=== PATIENT | male | born 1940 | race Caucasian/White ===

== ENCOUNTER 2016-12-04 09:43 | Emergency (ER) | payer OTHER ==
[~2016-12-04] VITALS: Wt 72.5 kg
[~2016-12-04 09:43] MED LIST: ASPI81TA3 PO; ATOR20TA38 PO; HYDR-902 PO; LOSA50TA6 PO; ONDA4TAB14 PO; TAMS-14 PO; TRAM-40 PO
[2016-12-04] MEDS ORDERED: BENZ100C70 PO (11:37)
[2016-12-04] MEDS ORDERED: AMO500 PO (11:37)
[2016-12-04] MEDS ORDERED: IBUP-1542 PO (11:37)
[2016-12-04] MEDS ORDERED: IBUPROFEN 600 MG TAB PO ONE (12:00)
--- NOTE | 2016-12-04 15:01 | ERD ---
ER Documentation Chief Complaint Date/Time DATE: 12/04/16 TIME: 14:50 Chief Complaint COUGH EAR PAIN AND SORE THROAT AND INTERMITTENT FEVERS FOR 3 DAYS HPI This is a 76-year-old male complaining of sore throat for 4 days associated with nonproductive cough, bilateral ear pain, headache and sore throat. Headache is localized under frontal and maxillary area. He reports that he thinks he has a fever but denies any night sweats or chills. Denies any visual changes, dysphagia, chest pain, shortness of breath, nausea, generalized weakness, diarrhea, constipation, or dysuria. Denies recent sick contact. Denies ear or nasal discharge. ROS All systems reviewed and are negative except as per history of present illness. Medications Home Meds Active Scripts Ibuprofen* (Motrin*) 600 Mg Tab, 600 MG PO Q6H Y for PAIN AND OR ELEVATED TEMP, #30 TAB Prov:ALICE BETANCOURT 12/04/16 Benzonatate* (Tessalon Perle*) 100 Mg Capsule, 100 MG PO Q8H Y for COUGH, #30 CAP Prov:ALICE BETANCOURT 12/04/16 Amoxicillin* (Amoxicillin*) 500 Mg Cap, 500 MG PO BID for 10 Days, CAP Prov:ALICE BETANCOURT 12/04/16 Ondansetron (Ondansetron Odt) 4 Mg Tab.rapdis, 4 MG PO Q6H Y for NAUSEA AND/OR VOMITING, #30 TAB Prov:CHELLE HIRSCH MD 09/26/16 Hydrocodone/Acetaminophen ([place] 10-325 Tablet) 1 Each Tablet, 1 TAB PO Q6H Y for PAIN, #12 TAB Prov:CHELLE HIRSCH MD 09/26/16 Atorvastatin Calcium* (Atorvastatin Calcium*) 20 Mg Tab, 40 MG PO HS for 30 Days Prov:NENA THOMASON 03/25/15 Reported Medications Losartan Potassium* (Losartan Potassium*) 50 Mg Tablet, 50 MG PO DAILY, TAB 09/26/16 Tramadol Hcl* (Ultram*) 50 Mg Tablet, 50 MG PO BID Y for PAIN, TAB 09/26/16 Aspirin* (Aspirin* Chew) 81 Mg Tab.chew, 81 MG PO DAILY, TAB.CHEW 09/26/16 Tamsulosin Hcl* (Flomax*) 0.4 Mg Cap.er.24h, 0.4 MG PO HS, CAP 03/24/15 Allergies Allergies: Coded Allergies: No Known Drug Allergies (Verified Allergy, Unknown, 09/26/16) PMhx/Soc History of Surgery: Yes (Appendectomy 1961, Prostate radiation January2014) Anesthesia Reaction: No Hx Neurological Disorder: No Hx Respiratory Disorders: Yes (SOB) Hx Cardiac Disorders: Yes (Chest pain) Hx Psychiatric Problems: No Hx Miscellaneous Medical Probl: No (prostate ca- resolved x 1yr, RA, PUD) Hx Alcohol Use: No Hx Substance Use: No Hx Tobacco Use: No Physical Exam Vitals Vital Signs Date Time Temp Pulse Resp B/P Pulse Ox O2 Delivery O2 Flow Rate FiO2 12/04/16 09:55 99.5 72 22 119/60 96 Physical Exam Physical Exam CONST: Well-developed, well-nourished, in no acute distress. HEENT: Atraumatic. Normal Conjunctiva. EOM intact. TM intact. External ear is normal. Oropharynx has erythema with exudates. Full range of motion. No meningismus. No submandibular induration. RESP: Clear to auscultation bilaterally. No wheezing. CARDIO: Regular rate and rhythm, no murmurs ABD: Soft, non tender, non distended. Normal bowel sounds. No McBurney's point tenderness. No guarding or rigidity. No peritoneal signs. SKIN: No petechiae or rashes BACK: No midline or flank tenderness EXT: No cyanosis or edema. Distal pulses equal and bilateral NEURO: Awake and alert, appropriate for age Results 24 hrs Current Medications Medications (Trade) Dose Ordered Sig/Sam Route PRN Reason Start Time Stop Time Status Last Admin Dose Admin Ibuprofen (Motrin) 600 mg ONCE ONCE PO 12/04/16 12:00 12/04/16 12:01 DC 12/04/16 11:52 Procedures/MDM EMERGENCY DEPARTMENT COURSE/MEDICAL DECISION MAKING This is a 76-year-old male who comes to the emergency room secondary to complaints of sore throat for 4 days associated with nonproductive cough, bilateral ear pain, headache and sore throat. Physical exam shows erythematous oropharynx with exudates. The patient was given ibuprofen in the department. On re-evaluation, the patient was feeling improved. My primary diagnosis is pharyngitis. Secondary diagnosis are cough, headache and sore throat Differential diagnoses considered, included but not limited to upper respiratory infection, tonsillitis, pneumonia, CT, otitis media, cerebral hemorrhage, influenza, meningitis. The patient was discharged for outpatient management with a prescription for amoxicillin, ibuprofen and Tessalon. The patient was advised to followup with their PMD in 1-2 days and to return to the Emergency Department if there are any new or worsening symptoms. The patient understood and agreed with the diagnosis, treatment and plan. The patient is stable for discharge at this time. Departure Diagnosis: Primary Impression: Pharyngitis, acute Pharyngitis/tonsillitis etiology: unspecified etiology Qualified Code: J02.9 - Acute pharyngitis, unspecified etiology Additional Impressions: Cough Headache Headache type: unspecified Headache chronicity pattern: acute headache Intractability: intractable Qualified Code: R51 - Acute intractable headache , unspecified headache type Sore throat Condition: Good Patient Instructions: When You Have a Sore Throat, Self-Care for Sore Throats, Self-Care for Headaches, Pharyngitis, Strep (Presumed) Referrals: TREY RUTLEDGE (PCP) Additional Instructions: Call your primary care doctor TOMORROW for an appointment during the next 1-2 days.See the doctor sooner or return here if your condition worsens before your appointment time. Return to this facility if you are not improving as expected. Take all medicines as directed. ALICE BETANCOURT Dec 04, 2016 15:01
== END 2016-12-04 11:56 | disposition home or self-care (01) ==
LOC: FTE 09:43
DX: J02.9 Acute pharyngitis, unspecified (principal); R05 Cough; R51 Headache; Z85.46 Personal history of malignant neoplasm of prostate; Z79.82 Long term (current) use of aspirin
CPT/HCPCS: 99284

== ENCOUNTER 2017-01-08 14:45 | Emergency (ER) | payer OTHER ==
[~2017-01-08] VITALS: Wt 71.9 kg
[~2017-01-08 14:45] MED LIST changes: +AMO500 PO; +BENZ100C70 PO; +IBUP-1542 PO
[2017-01-08] MEDS ORDERED: KETOROLAC 15 MG INJ IV STA (19:48)
[2017-01-08] MEDS ORDERED: SOD CHLORIDE 0.9% 500 ML IV STA (19:48)
[2017-01-08] MEDS ORDERED: CARI350T PO (19:53)
--- NOTE | 2017-01-08 19:56 | ERD ---
ER Documentation Chief Complaint Date/Time DATE: 01/08/17 TIME: 19:53 Chief Complaint CHEST PRESSURE AND LEFT ARM PAIN SINCE YESTERDAY, NO SOB NOTED HPI 76-year-old man complains of bilateral anterior neck pain and throat pain 2 months he states the pain radiates down to the anterior chest. Radiation of pain has occurred intermittently over the last 2 months. He denies exertional chest pain, no fevers or chills, no vomiting or diarrhea, no headache or blurry vision. Patient's PMD ordered bilateral carotid Doppler ultrasound, and patient and his state that this test was negative for abnormalities or significant carotid stenosis. Patient has had no weight loss, no calf or leg swelling, no recent trauma. ROS All systems reviewed and are negative except as per history of present illness. Medications Home Meds Active Scripts Carisoprodol* (Soma*) 350 Mg Tablet, 350 MG PO BID Y for PAIN, #15 TAB Prov:BRITT STONER MD 01/08/17 Reported Medications Carvedilol* (Carvedilol*) 6.25 Mg Tablet, 6.25 MG PO BID, #60 TAB 01/08/17 Atorvastatin* (Atorvastatin*) 40 Mg Tablet, 40 MG PO QHS, #30 TAB 01/08/17 Losartan Potassium* (Losartan Potassium*) 50 Mg Tablet, 50 MG PO DAILY, TAB 09/26/16 Aspirin* (Aspirin* Chew) 81 Mg Tab.chew, 81 MG PO DAILY, TAB.CHEW 09/26/16 Tamsulosin Hcl* (Flomax*) 0.4 Mg Cap.er.24h, 0.4 MG PO HS, CAP 03/24/15 Discontinued Reported Medications Tramadol Hcl* (Ultram*) 50 Mg Tablet, 50 MG PO BID Y for PAIN, TAB 09/26/16 Discontinued Scripts Ibuprofen* (Motrin*) 600 Mg Tab, 600 MG PO Q6H Y for PAIN AND OR ELEVATED TEMP, #30 TAB Prov:ALICE BETANCOURT 12/04/16 Benzonatate* (Tessalon Perle*) 100 Mg Capsule, 100 MG PO Q8H Y for COUGH, #30 CAP Prov:ALICE BETANCOURT 12/04/16 Amoxicillin* (Amoxicillin*) 500 Mg Cap, 500 MG PO BID for 10 Days, CAP Prov:ALICE BETANCOURT 12/04/16 Ondansetron (Ondansetron Odt) 4 Mg Tab.rapdis, 4 MG PO Q6H Y for NAUSEA AND/OR VOMITING, #30 TAB Prov:CHELLE HIRSCH MD 09/26/16 Hydrocodone/Acetaminophen ([place] 10-325 Tablet) 1 Each Tablet, 1 TAB PO Q6H Y for PAIN, #12 TAB Prov:CHELLE HIRSCH MD 09/26/16 Atorvastatin Calcium* (Atorvastatin Calcium*) 20 Mg Tab, 40 MG PO HS for 30 Days Prov:NENA THOMASON 03/25/15 Allergies Allergies: Coded Allergies: No Known Drug Allergies (Verified Allergy, Unknown, 01/08/17) PMhx/Soc Hypertension hypercholesterolemia, BPH History of Surgery: Yes (Appendectomy 1961, Prostate radiation January2014) Anesthesia Reaction: No Hx Neurological Disorder: No Hx Respiratory Disorders: Yes (SOB) Hx Cardiac Disorders: Yes (Chest pain) Hx Psychiatric Problems: No Hx Miscellaneous Medical Probl: No (prostate ca- resolved x 1yr, RA, PUD) Hx Alcohol Use: No Hx Substance Use: No Hx Tobacco Use: No Smoking Status: Never smoker FmHx Family History: No diabetes Physical Exam Vitals Vital Signs Date Time Temp Pulse Resp B/P Pulse Ox O2 Delivery O2 Flow Rate FiO2 01/08/17 21:54 98.0 100 20 143/69 99 Room Air 01/08/17 15:04 98.5 76 22 163/79 98 Physical Exam GENERAL: Well-developed, well-nourished, well-hydrated, in no apparent distress , looks nontoxic in appearance HEENT: No carotid bruits auscultated or thrills palpated, moist mucous membranes , pink conjunctiva, no cervical spine tenderness or step-off deformities, no goiter, no jaundice or icterus, extraocular movements intact without pain. No submandibular induration, and no pharyngeal erythema NEURO: Alert and oriented 3, cranial nerves II through XII intact bilaterally, pupils equal round reactive to light, no focal deficits or facial asymmetry, sensation intact distally Strength 5/5 in upper and lower extremities bilaterally CARDIAC: Regular rate and rhythm, no murmurs rubs or gallops LUNGS: Clear bilaterally no wheezing crackles or stridor ABDOMEN: Soft nontender, no guarding, no rigidity, no rebound, no psoas sign no obturator sign. Normoactive bowel sounds SKIN: Warm and dry to touch, no abrasions, contusions, or hematomas, no lacerations, no ecchymosis, no target lesions, and without ulcers EXTREMITIES: No clubbing cyanosis or edema, calves are bilaterally symmetrical, no Homans sign, no popliteal cord sign. Distal pulses equal and bilateral PSYCH: Normal affect without agitation or irritability Results 24 hrs Laboratory Tests Test 01/08/17 20:00 Troponin I < 0.012ng/ml Current Medications Medications (Trade) Dose Ordered Sig/Sam Route PRN Reason Start Time Stop Time Status Last Admin Dose Admin Sodium Chloride (NS) 500 ml @ 500 mls/hr Q1H STAT IV 01/08/17 19:48 01/08/17 20:47 DC 01/08/17 19:57 Ketorolac Tromethamine (Toradol) 15 mg ONCE STAT IV 01/08/17 19:48 01/08/17 19:50 DC 01/08/17 19:57 Procedures/MDM IV line was established patient was placed on cardiac cath technologist rhythm strip revealed sinus rhythm at about 70 bpm with upright P and T waves. Patient was afebrile. EKG performed, read by me: 72 bpm, normal sinus rhythm, normal axis, no acute ST segment changes, narrow QRS complex, with good R-wave progression in precordial leads. I administered 500 cc of normal saline intravenously and Toradol 15 mg IV with good effect. Troponin was negative Differential diagnoses considered, included but not limited to acute coronary syndrome, pulmonary embolism, aortic dissection, abdominal aortic aneurysm, sepsis, stroke, meningitis, encephalitis, pneumonia, appendicitis, cholecystitis , bowel obstruction, pyelonephritis, nephrolithiasis, cystitis, as well as metabolic, hematologic, and electrolyte abnormalities. As well as abscess, cellulitis, fractures, and dislocations. Patient feels much better at this time, and vital signs are normal, symptoms have improved. I did give strict instructions to return to the ED if symptoms continue or worsen, patient will otherwise follow-up with primary care physician. Patient understood instructions and agreed to plan. Departure Diagnosis: Primary Impression: Carotidynia Condition: Good Patient Instructions: Neck Pain, No Trauma Referrals: TREY RUTLEDGE (PCP) BRITT STONER MD Jan 08, 2017 19:56
[2017-01-08] MEDS ORDERED: ATOR40TA68 PO (20:13)
[2017-01-08] MEDS ORDERED: CARV6.2579 PO (20:14)
[2017-01-08 21:54] VITALS: BP 143/69; PULSE 100; RESP 20; TEMP 98
== END 2017-01-08 21:54 | disposition home or self-care (01) ==
LOC: E/R 14:45
DX: G90.01 Carotid sinus syncope (principal); I10 Essential (primary) hypertension; Z85.46 Personal history of malignant neoplasm of prostate; Z79.82 Long term (current) use of aspirin
CPT/HCPCS: 84484; J1885; J7040; 36415; 96374

== ENCOUNTER 2017-04-17 19:32 | Emergency (ER) | payer OTHER ==
[~2017-04-17] VITALS: Ht 172.7 cm; Wt 75.5 kg
[~2017-04-17 19:32] MED LIST changes: -AMO500 PO; -ATOR20TA38 PO; +ATOR40TA68 PO; -BENZ100C70 PO; +CARI350T PO; +CARV6.2579 PO; -HYDR-902 PO; -IBUP-1542 PO; -ONDA4TAB14 PO; -TRAM-40 PO
[2017-04-17 19:36] VITALS: Ht 172.7 cm; Wt 75.5 kg
[2017-04-17] MEDS ORDERED: ACET-141 PO (21:21)
[2017-04-17] MEDS ORDERED: MULT1TAB10 PO (21:21)
[2017-04-17] MEDS ORDERED: ONDANSETRON 4 MG INJ IV STA (21:31)
[2017-04-17] MEDS ORDERED: morphine 2 MG INJ IV ONE (22:00)
[2017-04-17 22:11] LABS: ADD SCAN DIFF NO
--- NOTE | 2017-04-17 22:16 | RADRPT ---
PROCEDURE: XR Chest. CLINICAL INDICATION: Chest pain. Possible sepsis TECHNIQUE: Portable AP semi erect view of the chest was obtained. COMPARISON: 09/26/2016 FINDINGS: The cardiomediastinal silhouette is within upper normal limits. Left greater than right lower lobe subsegmental atelectasis or scarring is present without evidence of pneumonia. There is no evidence for pleural effusion, pneumothorax or pulmonary vascular congestion. The osseous structures are in tact with no evidence for acute abnormality. RPTAT:HJJR IMPRESSION: Changes in the lung bases are believed to reflect left greater than right lower lobe subsegmental at electasis or scarring similar to the study of 09/26/2016 allowing for the difference in degrees of i nspiratory response. Physician López Date Time Electronically viewed and signed by Physician López on 04/17/2017 22:16 /
[2017-04-17 22:19] LABS: BASOPHILS % 0.4 % (0.0-2.0); EOSINOPHILS # 0.3 10^3/ul (0.0-0.5); EOSINOPHILS % 3.4 % (0.0-7.0); HEMATOCRIT 42.4 % (42.0-52.0); HEMOGLOBIN 14.1 g/dl (14.0-18.0); LYMPHOCYTES # 2.8 10^3/ul (0.8-2.9); MEAN CORPUSCULAR HEMOGLOBIN 29.3 pg (29.0-33.0); MEAN CORPUSCULAR HGB CONC 33.3 g/dl (32.0-37.0); MEAN PLATELET VOLUME 10.6 fl (7.4-10.4); MONOCYTE # 0.6 10^3/ul (0.3-0.9); MONOCYTES % 7.9 % (0.0-11.0); NEUTROPHILS % 52.2 % (39.0-77.0); PLATELET COUNT 223 10^3/UL (140-415); RED BLOOD COUNT 4.82 10^6/ul (4.70-6.10); RED CELL DISTRIBUTION WIDTH 12.4 % (11.5-14.5); WHITE BLOOD COUNT 7.7 10^3/ul (4.8-10.8)
[2017-04-17 22:19] LABS: ADD UMIC NO; UR ASCORBIC ACID NEGATIVE (NEGATIVE); UR BILIRUBIN (Dip) NEGATIVE (NEGATIVE); UR BLOOD (Dip) NEGATIVE (NEGATIVE); UR CLARITY CLEAR (CLEAR); UR COLOR YELLOW (YELLOW); UR GLUCOSE (Dip) NEGATIVE (NEGATIVE); UR KETONES (Dip) NEGATIVE (NEGATIVE); UR LEUKOCYTE ESTERASE (Dip) NEGATIVE Leu/ul (NEGATIVE); UR NITRITE (Dip) NEGATIVE (NEGATIVE); UR SPECIFIC GRAVITY (Dip) 1.021 (1.003-1.030); UR TOTAL PROTEIN (Dip) NEGATIVE (NEGATIVE); UR UROBILINOGEN (Dip) NEGATIVE (NEGATIVE)
--- NOTE | 2017-04-17 22:30 | RADRPT ---
PROCEDURE: CT Abdomen and Pelvis without contrast. CLINICAL INDICATION: Fever. Possible sepsis. TECHNIQUE: CT scan of the abdomen and pelvis was performed on a multidetector slice CT scanner. No intravenous contrast material was utilized. Sagittal and coronal reformatted images were obtained fr om the axial source images. Images were reviewed on a high-resolution PACS workstation. Exam CTDlvol = 9.6 mGy and DLP = 537 Gy-cm. One of the following 3 dose reduction techniques were used: Automate d exposure control; adjustment of the mA and/or kV according to patient size; or use of iterative re construction technique. COMPARISON: 09/26/2016. FINDINGS: There is no obstruction or ileus. The appendix is visualized and is normal in appearance. There is no evidence for appendicitis.. There is diffuse colonic diverticulosis greatest involving the sigmo id colon, without evidence for diverticulitis. There is no free fluid. The liver is overall normal in size. No intrahepatic lesions are identified. The gallbladder is norm al in appearance. There is no definite biliary ductal dilation. Pancreas is normal in appearance. Th e spleen is unremarkable.. There are no adrenal masses. The aorta is normal caliber. Atheroscleroti c vascular calcifications are present.. Kidneys are normal in appearance without hydronephrosis, mass or calculus.. Ureters are of normal ca liber and without evidence for an obstructing calculus. The urinary bladder is normal in appearance .. Limited evaluation of the lung bases demonstrates moderate bibasilar atelectasis.. There are degenerative changes of the lumbar spine. There is 2 mm anterior spondylolisthesis of L4-L 5 with associated severe bilateral posterior facet hypertrophy.. IMPRESSION: 1. No acute abnormality. 2. Diffuse colonic diverticulosis without evidence for diverticulitis. 3. No evidence for appendicitis. 4. No bowel obstruction or ileus. 5. Degenerative changes of the lumbar spine including grade 1 anterior spondylolisthesis of L4 on L 5. 6. Bibasilar atelectasis. RPTAT: HMVK .Ron Mcmahan MD, Date Time Electronically viewed and signed by .Ron Mcmahan MD, on 04/17/2017 22:30 .K/
[2017-04-17 22:33] LABS: PROTIME 13.2 Sec (12.2-14.2)
[2017-04-17 22:40] LABS: ALANINE AMINOTRANSFERASE 36 IU/L (13-69); ALBUMIN 4.7 g/dl (3.3-4.9); ALBUMIN/GLOBULIN RATIO 1.51; ALKALINE PHOSPHATASE 109 IU/L (42-121); ANION GAP 20 (8-16); ASPARTATE AMINO TRANSFERASE 30 IU/L (15-46); BILIRUBIN,INDIRECT 0.2 mg/dl (0-1.1); BILIRUBIN,TOTAL 0.2 mg/dl (0.2-1.3); BLOOD UREA NITROGEN 24 mg/dl (7-20); CALCIUM 9.4 mg/dl (8.4-10.2); CARBON DIOXIDE 26 mmol/L (21-31); CHLORIDE 100 mmol/L (97-110); CREATININE 0.89 mg/dl (0.61-1.24); GLUCOSE 90 mg/dl (70-220); POTASSIUM 3.5 mmol/L (3.5-5.1); SODIUM 142 mmol/L (135-144); TOTAL PROTEIN 7.8 g/dl (6.1-8.1)
[2017-04-17 23:00] LABS: TROPONIN-I < 0.012 ng/ml (0.00-0.12)
--- NOTE | 2017-04-17 23:32 | ERD ---
ER Documentation Chief Complaint Date/Time DATE: 04/17/17 TIME: 23:31 Chief Complaint LUQ ABD PAIN RADIATES TO THE BACK HPI This is a 76-year-old male who has left upper quadrant abdominal pain that radiates to the back. No fevers no chills. No nausea no vomiting. No other current issues. Pain is mild to moderate intensity. Mild nausea. No vomiting. No diarrhea. Last bowel movement today in the morning ROS All systems reviewed and are negative except as per history of present illness. Medications Home Meds Reported Medications Multivitamin W-Minerals/Lutein (CENTRUM SILVER ULTRA MEN'S TAB) 1 Each Tablet, 1 EACH PO, TAB 04/17/17 Acetaminophen* (Acetaminophen*) 500 MG Extra Strength Tablet, 500 MG PO Q4H Y for PAIN AND OR ELEVATED TEMP, TAB 04/17/17 Carvedilol* (Carvedilol*) 6.25 Mg Tablet, 6.25 MG PO BID, #60 TAB 01/08/17 Atorvastatin* (Atorvastatin*) 40 Mg Tablet, 40 MG PO QHS, #30 TAB 01/08/17 Losartan Potassium* (Losartan Potassium*) 50 Mg Tablet, 50 MG PO DAILY, TAB 09/26/16 Aspirin* (Aspirin* Chew) 81 Mg Tab.chew, 81 MG PO DAILY, TAB.CHEW 09/26/16 Tamsulosin Hcl* (Flomax*) 0.4 Mg Cap.er.24h, 0.4 MG PO HS, CAP 03/24/15 Discontinued Scripts Carisoprodol* (Soma*) 350 Mg Tablet, 350 MG PO BID Y for PAIN, #15 TAB Prov:BRITT STONER MD 01/08/17 Allergies Allergies: Coded Allergies: No Known Drug Allergies (Unverified Allergy, Unknown, 04/17/17) PMhx/Soc History of Surgery: Yes (Appendectomy 1961, Prostate radiation January2014) Anesthesia Reaction: No Hx Neurological Disorder: No Hx Respiratory Disorders: Yes (SOB) Hx Cardiac Disorders: Yes (Chest pain, HTN, high cholesterol) Hx Psychiatric Problems: No Hx Miscellaneous Medical Probl: No (prostate ca- resolved x 1yr, RA, PUD) Hx Alcohol Use: No Hx Substance Use: No Hx Tobacco Use: No Smoking Status: Never smoker Physical Exam Vitals Vital Signs Date Time Temp Pulse Resp B/P Pulse Ox O2 Delivery O2 Flow Rate FiO2 7/4/17 21:54 98.0 60 16 139/76 98 Room Air 04/17/17 19:36 98.1 68 20 188/81 97 Physical Exam Const: [] Head: Atraumatic Eyes: Normal Conjunctiva ENT: Normal External Ears, Nose and Mouth. Neck: Full range of motion..~ No meningismus. Resp: Clear to auscultation bilaterally Cardio: Regular rate and rhythm, no murmurs Abd: Soft, non tender, non distended. Normal bowel sounds Skin: No petechiae or rashes Back: No midline or flank tenderness Ext: No cyanosis, or edema Neur: Awake and alert Psych: Normal Mood and Affect Result Diagram: 04/17/17204404/17/172044 Results 24 hrs Laboratory Tests Test 04/17/17 20:20 04/17/17 20:45 04/17/17 21:40 Urine Color YELLOW Urine Clarity CLEAR Urine pH 5.0 Urine Specific [place] 1.021 Urine Ketones NEGATIVEmg/dL Urine Nitrite NEGATIVEmg/dL Urine Bilirubin NEGATIVEmg/dL Urine Urobilinogen NEGATIVEmg/dL Urine Leukocyte Esterase NEGATIVELeu/ul Urine Hemoglobin NEGATIVEmg/dL Urine Glucose NEGATIVEmg/dL Urine Total Protein NEGATIVEmg/dl White Blood Count 7.710^3/ul Red Blood Count 4.8210^6/ul Hemoglobin 14.1g/dl Hematocrit 42.4% Mean Corpuscular Volume 88.0fl Mean Corpuscular Hemoglobin 29.3pg Mean Corpuscular Hemoglobin Concent 33.3g/dl Red Cell Distribution Width 12.4% Platelet Count 82420^3/UL Mean Platelet Volume 10.6fl Neutrophils % 52.2% Lymphocytes % 36.0% Monocytes % 7.9% Eosinophils % 3.4% Basophils % 0.4% Nucleated Red Blood Cells % 0.0/100WBC Neutrophils # 4.010^3/ul Lymphocytes # 2.810^3/ul Monocytes # 0.610^3/ul Eosinophils # 0.310^3/ul Basophils # 0.010^3/ul Nucleated Red Blood Cells # 0.010^3/ul Prothrombin Time 13.2Sec Prothrombin Time Ratio 1.0 INR International Normalized Ratio 1.00 Activated Partial Thromboplast Time 36.0Sec Sodium Level 142mmol/L Potassium Level 3.5mmol/L Chloride Level 100mmol/L Carbon Dioxide Level 26mmol/L Anion Gap 20 Blood Urea Nitrogen 24mg/dl Creatinine 0.89mg/dl Glucose Level 90mg/dl Calcium Level 9.4mg/dl Total Bilirubin 0.2mg/dl Direct Bilirubin 0.00mg/dl Indirect Bilirubin 0.2mg/dl Aspartate Amino Transf (AST/SGOT) 30IU/L Alanine Aminotransferase (ALT/SGPT) 36IU/L Alkaline Phosphatase 109IU/L Troponin I < 0.012ng/ml Total Protein 7.8g/dl Albumin 4.7g/dl Globulin 3.10g/dl Albumin/Globulin Ratio 1.51 Lactic Acid Level 1.1mmol/L Current Medications Medications (Trade) Dose Ordered Sig/Sam Route PRN Reason Start Time Stop Time Status Last Admin Dose Admin Ondansetron HCl (Zofran Inj) 4 mg ONCE STAT IV 04/17/17 21:31 04/17/17 21:33 DC 04/17/17 21:43 Morphine Sulfate (morphine) 2 mg ONCE ONCE IV 04/17/17 22:00 04/17/17 22:01 DC 04/17/17 21:44 Procedures/MDM EKG: Rate/Rhythm: [Normal Sinus Rhythm] QRS, ST, T-waves: [No changes consistent w/ acute ischemia] Impression: [No evidence of ischemia or arrhythmia] Chest X-ray 1V Interpreted by me: Soft Tissue: No acute abnormalities Bones: No acute abnormalities Mediastinum/Cardiac Silhouette/Lungs: [No acute abnormalities] Medical decision-makin-year-old male mild diverticulitis. Stable for outpatient management. Discharge home with Cipro and Flagyl. Follow-up in 8 hours for serial abdominal exams. Return for new or worsening symptoms immediately Departure Diagnosis: Primary Impression: Abdominal pain Abdominal location: generalized Qualified Code: R10.84 - Generalized abdominal pain Additional Impression: Diverticulitis Diverticulitis site: unspecified part of intestinal tract Diverticulitis bleeding: without bleeding Diverticulitis complication: without perforation or abscess Qualified Code: K57.92 - Diverticulitis of intestine without perforation or abscess without bleeding, unspecified part of intestinal tract Condition: Stable HIGINIO PAIZ Apr 17, 2017 23:32
[2017-04-17] MEDS ORDERED: METR500T PO (23:34)
[2017-04-17] MEDS ORDERED: CIPR500T4 PO (23:34)
[2017-04-17] MEDS ORDERED: ONDA4TAB14 PO (23:34)
[2017-04-17] MEDS ORDERED: TRAM50TA2 PO (23:34)
[2017-04-18 00:28] VITALS: BP 119/68; PULSE 60; RESP 18; TEMP 98.7
== END 2017-04-18 00:29 | disposition home or self-care (01) ==
LOC: E/R 19:32
DX: R10.84 Generalized abdominal pain (principal); K57.92 Diverticulitis of intestine, part unspecified, without perforation or abscess without bleeding; I10 Essential (primary) hypertension; Z79.82 Long term (current) use of aspirin
CPT/HCPCS: 36415; 71010; 74176; 80053; 81003; 83605; 84484; 85025; 85610; 85730; 87040; 87086; 93005; 96374; 96375; 99285; J2270; J2405

== ENCOUNTER 2017-04-21 09:35 | Inpatient (IN) | payer OTHER ==
[~2017-04-21] VITALS: Ht 160 cm; Wt 72.4 kg
[~2017-04-21 09:35] MED LIST changes: +ACET-141 PO; -CARI350T PO; +CIPR500T4 PO; +METR500T PO; +MULT1TAB10 PO; +ONDA4TAB14 PO; +TRAM50TA2 PO
[2017-04-21] MEDS ORDERED: PANTOPRAZOLE IV 80 MG in SOD CHLORIDE 0.9% 100 ML IVPB STA (11:32)
[2017-04-21] MEDS ORDERED: PANTOPRAZOLE IV 80 MG in SOD CHLORIDE 0.9% 100 ML IV STA (11:32)
[2017-04-21 11:49] LABS: ADD SCAN DIFF NO
[2017-04-21 11:50] LABS: BASOPHILS % 0.4 % (0.0-2.0); EOSINOPHILS # 0.1 10^3/ul (0.0-0.5); EOSINOPHILS % 1.9 % (0.0-7.0); HEMATOCRIT 40.7 % (42.0-52.0); HEMOGLOBIN 13.9 g/dl (14.0-18.0); LYMPHOCYTES % 37.7 % (15.0-51.0); MEAN CORPUSCULAR HEMOGLOBIN 29.8 pg (29.0-33.0); MEAN CORPUSCULAR HGB CONC 34.2 g/dl (32.0-37.0); MEAN CORPUSCULAR VOLUME 87.3 fl (82.0-101.0); MONOCYTE # 0.4 10^3/ul (0.3-0.9); MONOCYTES % 7.3 % (0.0-11.0); NEUTROPHIL # 2.8 10^3/ul (1.6-7.5); NEUTROPHILS % 52.5 % (39.0-77.0); PLATELET COUNT 207 10^3/UL (140-415); RED BLOOD COUNT 4.66 10^6/ul (4.70-6.10); RED CELL DISTRIBUTION WIDTH 12.5 % (11.5-14.5); WHITE BLOOD COUNT 5.2 10^3/ul (4.8-10.8)
--- NOTE | 2017-04-21 11:58 | ERA ---
ER Documentation Chief Complaint Date/Time DATE: 04/21/17 TIME: 11:56 Chief Complaint MID ABDOMINAL PAIN 9/10.HX DIVERTICULITIS HPI Very pleasant 76-year-old male who is Macedonian-speaking. An cage maker machine has been used. The patient describes several days of lower abdominal pain that is periumbilical, cramping, 9 out of 10. He was seen here 4 days ago for similar with a negative CT abdomen and pelvis. He does have a history of diverticulosis and diverticulitis. He also has a history of peptic ulcer disease and describes several days of melanotic stool. He denies any hematemesis, liver disease or alcohol abuse. ROS All systems reviewed and are negative except as per history of present illness. Medications Home Meds Active Scripts Ondansetron (Ondansetron Odt) 4 Mg Tab.rapdis, 4 MG PO Q6H Y for NAUSEA AND/OR VOMITING, #10 TAB Prov:HIGINIO PAIZ. 04/17/17 Tramadol HCl (Tramadol HCl) 50 Mg Tablet, 50 MG PO Q4 Y for PAIN, #20 TAB Prov:HIGINIO PAIZ. 04/17/17 Metronidazole* (Flagyl*) 500 Mg Tablet, 500 MG PO TID for 7 Days, TAB Prov:HIGINIO PAIZ. 04/17/17 Ciprofloxacin Hcl* (Ciprofloxacin Hcl*) 500 Mg Tablet, 500 MG PO BID for 7 Days , TAB Prov:HIGINIO PAIZ. 04/17/17 Reported Medications Multivitamin W-Minerals/Lutein (CENTRUM SILVER ULTRA MEN'S TAB) 1 Each Tablet, 1 EACH PO, TAB 04/17/17 Acetaminophen* (Acetaminophen*) 500 MG Extra Strength Tablet, 500 MG PO Q4H Y for PAIN AND OR ELEVATED TEMP, TAB 04/17/17 Carvedilol* (Carvedilol*) 6.25 Mg Tablet, 6.25 MG PO BID, #60 TAB 01/08/17 Atorvastatin* (Atorvastatin*) 40 Mg Tablet, 40 MG PO QHS, #30 TAB 01/08/17 Losartan Potassium* (Losartan Potassium*) 50 Mg Tablet, 50 MG PO DAILY, TAB 09/26/16 Aspirin* (Aspirin* Chew) 81 Mg Tab.chew, 81 MG PO DAILY, TAB.CHEW 09/26/16 Tamsulosin Hcl* (Flomax*) 0.4 Mg Cap.er.24h, 0.4 MG PO HS, CAP 03/24/15 Discontinued Scripts Carisoprodol* (Soma*) 350 Mg Tablet, 350 MG PO BID Y for PAIN, #15 TAB Prov:BRITT STONER MD 01/08/17 Allergies Allergies: Coded Allergies: No Known Drug Allergies (Unverified Allergy, Unknown, 04/21/17) PMhx/Soc History of Surgery: Yes (Appendectomy 1961, Prostate radiation January2014) Anesthesia Reaction: No Hx Neurological Disorder: No Hx Respiratory Disorders: Yes (SOB) Hx Cardiac Disorders: Yes (Chest pain, HTN, high cholesterol) Hx Psychiatric Problems: No Hx Miscellaneous Medical Probl: No (prostate ca- resolved x 1yr, RA, PUD) Hx Alcohol Use: No Hx Substance Use: No Hx Tobacco Use: No FmHx Family History: No diabetes Physical Exam Vitals Vital Signs Date Time Temp Pulse Resp B/P Pulse Ox O2 Delivery O2 Flow Rate FiO2 04/21/17 11:45 Nasal Cannula 04/21/17 09:39 97.8 69 18 154/69 98 Physical Exam General: Well developed, well nourished, no acute distress Head: Normocephalic, atraumatic. Eyes: Pupils equally reactive, EOM intact ENT: Moist mucous membranes Neck: Supple, no lymphadenopathy Respiratory: Lungs clear bilaterally, no distress Cardiovascular: RRR, no murmurs, rubs, or gallops Abdominal: Soft, mild diffuse tenderness without rebound or guarding, non- distended, no peritoneal signs : Deferred per patient request MSK: No edema, no unilateral swelling, 5/5 strength Neurologic: Alert and oriented, moving all extremities, normal speech, no focal weakness, no cerebellar signs Skin: No rash Psych: Normal mood Result Diagram: 04/21/17 1137 04/21/17 1137 Results 24 hrs Laboratory Tests Test 04/21/17 11:20 04/21/17 11:37 Urine Color STRAW Urine Clarity CLEAR Urine pH 7.0 Urine Specific [place] 1.005 Urine Ketones NEGATIVEmg/dL Urine Nitrite NEGATIVEmg/dL Urine Bilirubin NEGATIVEmg/dL Urine Urobilinogen NEGATIVEmg/dL Urine Leukocyte Esterase NEGATIVELeu/ul Urine Hemoglobin NEGATIVEmg/dL Urine Glucose NEGATIVEmg/dL Urine Total Protein NEGATIVEmg/dl White Blood Count 5.210^3/ul Red Blood Count 4.6610^6/ul Hemoglobin 13.9g/dl Hematocrit 40.7% Mean Corpuscular Volume 87.3fl Mean Corpuscular Hemoglobin 29.8pg Mean Corpuscular Hemoglobin Concent 34.2g/dl Red Cell Distribution Width 12.5% Platelet Count 70879^3/UL Mean Platelet Volume 10.0fl Neutrophils % 52.5% Lymphocytes % 37.7% Monocytes % 7.3% Eosinophils % 1.9% Basophils % 0.4% Nucleated Red Blood Cells % 0.0/100WBC Neutrophils # 2.810^3/ul Lymphocytes # 2.010^3/ul Monocytes # 0.410^3/ul Eosinophils # 0.110^3/ul Basophils # 0.010^3/ul Nucleated Red Blood Cells # 0.010^3/ul Prothrombin Time 14.4Sec Prothrombin Time Ratio 1.1 INR International Normalized Ratio 1.12 Activated Partial Thromboplast Time 35.7Sec Sodium Level 136mmol/L Potassium Level 4.0mmol/L Chloride Level 103mmol/L Carbon Dioxide Level 27mmol/L Anion Gap 10 Blood Urea Nitrogen 14mg/dl Creatinine 0.94mg/dl Glucose Level 113mg/dl Calcium Level 9.0mg/dl Total Bilirubin 0.5mg/dl Direct Bilirubin 0.00mg/dl Indirect Bilirubin 0.5mg/dl Aspartate Amino Transf (AST/SGOT) 60IU/L Alanine Aminotransferase (ALT/SGPT) 64IU/L Alkaline Phosphatase 79IU/L Total Protein 7.6g/dl Albumin 4.8g/dl Globulin 2.80g/dl Albumin/Globulin Ratio 1.71 Lipase 55U/L Current Medications Medications (Trade) Dose Ordered Sig/Sam Route PRN Reason Start Time Stop Time Status Last Admin Dose Admin Pantoprazole 80 mg/Sodium Chloride 100 ml @ 400 mls/hr ONCE STAT IVPB 04/21/17 11:32 04/21/17 11:46 DC 04/21/17 12:08 Pantoprazole/ Sodium Chloride (Protonix Iv/NS) 100 ml @ 10 mls/hr ONCE STAT IV 04/21/17 11:32 04/21/17 21:31 04/21/17 12:14 Ondansetron HCl (Zofran Inj) 4 mg BRIDGE ORDER PRN IV NAUSEA AND/OR VOMITING 04/21/17 14:30 04/22/17 14:29 Acetaminophen (Tylenol Tab) 650 mg ER BRIDGE PRN PO MILD PAIN/FEVER 04/21/17 14:30 04/22/17 14:29 Procedures/MDM EKG, MONITORS, & DIAGNOSTIC IMAGING: EKG: I reviewed and interpreted a 12-lead EKG. Rhythm: Normal sinus rhythm Ectopy: None Intervals: No abnormalities ST segments: No elevations or depressions T waves: No contiguous inversions CT abdomen and pelvis: No acute intra-abdominal process LAB INTERPRETATION: Stable hemoglobin MEDICAL DECISION MAKING: This is a patient who presents with a history of peptic ulcer disease, abdominal cramping and melanotic stool. His symptoms and presentation are very consistent with likely subacute upper GI hemorrhage. The patient has had a CT scan approximate 4 days ago but given his age, history of diverticulosis there is some concern for acute intra-abdominal process therefore repeat CT imaging would be appropriate. The patient does not have a history of cirrhosis or esophageal varices. The patient will be initiated on a proton pump inhibitor bolus and drip. He will be typed and screened. He is hemodynamically stable and unlikely to require blood transfusion at this time. The patient will benefit from inpatient hospitalization, stabilization and likely GI consultation for endoscopy and potentially colonoscopy. ER COURSE: This is likely subacute process given stable hemoglobin and normal BUN to creatinine ratio. Inpatient hospitalization for GI consultation on a nonemergent basis would be reasonable. PPI bolus and drip initiated. I kept the patient and/or family informed of laboratory and diagnostic imaging results throughout the emergency room course. DISPOSITION PLAN: Medical surgical admission CONSULTATION: Accepting care team and consultations: I discussed the current laboratory data, diagnostic imaging and emergency care provided. Admitting team: Dr. Mcclure Admitting team indication: Insurance directed Departure Diagnosis: Primary Impression: Upper GI bleed Additional Impression: Generalized abdominal pain Condition: Stable MARGRET STORY MD Apr 21, 2017 11:58
[2017-04-21 12:14] LABS: ALBUMIN 4.8 g/dl (3.3-4.9); ALBUMIN/GLOBULIN RATIO 1.71; BILIRUBIN,INDIRECT 0.5 mg/dl (0-1.1); BILIRUBIN,TOTAL 0.5 mg/dl (0.2-1.3); CREATININE 0.94 mg/dl (0.61-1.24); TOTAL PROTEIN 7.6 g/dl (6.1-8.1)
[2017-04-21 12:25] LABS: INR 1.12; PARTIAL THROMBOPLASTIN TIME 35.7 Sec (25.0-35.0); PROTIME 14.4 Sec (12.2-14.2); PT RATIO 1.1
[2017-04-21 12:29] LABS: ADD UMIC NO; UR ASCORBIC ACID NEGATIVE (NEGATIVE); UR BILIRUBIN (Dip) NEGATIVE (NEGATIVE); UR BLOOD (Dip) NEGATIVE (NEGATIVE); UR CLARITY CLEAR (CLEAR); UR COLOR STRAW (YELLOW); UR GLUCOSE (Dip) NEGATIVE (NEGATIVE); UR KETONES (Dip) NEGATIVE (NEGATIVE); UR LEUKOCYTE ESTERASE (Dip) NEGATIVE Leu/ul (NEGATIVE); UR NITRITE (Dip) NEGATIVE (NEGATIVE); UR SPECIFIC GRAVITY (Dip) 1.005 (1.003-1.030); UR TOTAL PROTEIN (Dip) NEGATIVE (NEGATIVE); UR UROBILINOGEN (Dip) NEGATIVE (NEGATIVE)
--- NOTE | 2017-04-21 12:38 | RADRPT ---
PROCEDURE: CT Abdomen and Pelvis without contrast. CLINICAL INDICATION: Abdominal pain TECHNIQUE: CT of the abdomen and pelvis was performed on a multi-detector scanner without IV contr ast. Coronal and sagittal images were reformatted from the axial data set. One or more of the foll owing dose reduction techniques were used: automated exposure control, adjustment of the mA and/or kV according to patient size, use of iterative reconstruction technique. CTDI = 9.84 mGy. DLP = 581 .22 mGy-cm. COMPARISON: CT, 04/17/2017 FINDINGS: CT abdomen: The lung bases are clear. The heart size is normal, without pericardial effusion. Liver demonstrat es scattered benign cysts. Gallbladder, biliary tree, pancreas, spleen, adrenal glands and kidneys are unremarkable. No urolithiasis or obstructive uropathy is identified. The stomach is grossly un remarkable. The aorta is of normal caliber. Aortic vascular calcifications are present. There is no retroperit estrada lymphadenopathy. The vinicius hepatis region is clear. CT pelvis: No bowel obstruction, free intraperitoneal air or abscess is seen. Colonic diverticulosis is noted without diverticulitis. There is no appendicitis or colitis. Urinary bladder is grossly unremarkab le. No pelvic mass, free fluid or lymphadenopathy is identified. The surrounding osseous structures are remarkable for degenerative spondylosis of the spine. No ost eolytic or osteoblastic lesion is detected. There is chronic grade 1 anterolisthesis at L4-5 seconda ry to facet arthrosis. IMPRESSION: 1. Aortoiliac atherosclerotic calcifications are noted. 2. Colonic diverticulosis is seen without diverticulitis. 3. No mass, lymphadenopathy, or focal acute inflammatory process is identified. RPTAT: HDWR .Julio Porter MD, MD Date Time Electronically viewed and signed by .Julio Porter MD, on 04/21/2017 12:38 .R/
[2017-04-21] MEDS ORDERED: ONDANSETRON 4 MG INJ IV PRN ×2 (14:30→15:30)
[2017-04-21] MEDS ORDERED: ACETAMINOPHEN 325 MG TAB PO PRN ×2 (14:30→15:30)
[2017-04-21 15:12] VITALS: TEMP 98
[2017-04-21] MEDS ORDERED: morphine 2 MG INJ IV PRN (15:30)
[2017-04-21] MEDS ORDERED: HYDROCODONE/APAP (5/325) TAB PO PRN (15:30)
[2017-04-21] MEDS ORDERED: NACL 0.9% 3 ML SYG IV SCH (15:30)
[2017-04-21] MEDS ORDERED: ACETAMINOPHEN 650 MG SUPP PR PRN (15:30)
--- NOTE | 2017-04-21 15:56 | RADRPT ---
PROCEDURE: XR Chest. CLINICAL INDICATION: Preoperative. TECHNIQUE: Two views. Frontal and lateral. COMPARISON: 09/26/2016. FINDINGS: There is mild left basilar scarring, unchanged. The lungs are otherwise clear. The heart size is normal. There is calcification in the aorta consistent with atherosclerosis. There is no pleural effusion. There is no pneumothorax. IMPRESSION: 1. Mild left basilar scarring, unchanged. 2. Atherosclerosis. RPTAT: QQ .Zeyad Dennison MD, MD Date Time Electronically viewed and signed by .Zeyad Dennsion MD, MD on 04/21/2017 15:55 .R/
[2017-04-21 17:51] VITALS: Ht 160 cm; Wt 72.4 kg
[2017-04-21 17:55] VITALS: BP 163/71; RESP 20
[2017-04-21] MEDS: SOD CHLORIDE 0.9% 1,000 ML IV SCH (18:05)
--- NOTE | 2017-04-21 18:26 | HP ---
Date/Time of Note Date/Time of Note DATE: 04/21/17 TIME: 18:21 Assessment/Plan VTE Prophylaxis VTE Prophylaxis Intervention: contraindicated VTE Contraindication Reason: bleeding Lines/Catheters IV [facility] Per[facility] IV Assessment/Plan Chief Complaint/Hosp Course Assessment 1. GI bleed 2. Nonsteroidal use 3. Possible recent diverticulitis 4. Probable chronic diverticulosis 5. History of peptic ulcer disease gastritis 6. DJD? 7. Chr htn dl, possible metabolic syndrome. Hold asa due to GI bleed. Plan: Admit to [facility], consult GI, npo. IVf H&H. potentially may need EGD. Problems: HPI/ROS Admit Date/Time Admit Date/Time Apr 21, 2017 at 14:20 Hx of Present Illness GI bleed. Melena since 1-2 days. No hematochezia. No dysuria. Nausea but no vomiting. Abdominal pain potentially crampy diffuse throughout the abdomen but not significantly epigastric at all. No fevers no chills. No ill contacts that I am aware of. No ill foods that I am aware of. Patient patient does take aspirin and nonsteroidal. No history of weight loss or loss of appetite except for over the last few days. He potentially has had gastritis ulcers in the past. Here in the ER few days ago. Concern for diverticulitis. Was presently at home on Cipro and Flagyl. ER: Stable vital signs. ROS Neurological: No loss of speech or vision or headache. Cardiovascular: No chest pain dyspnea no edema Pulmonary: no cough no wheezing no edema Abdomen: positive pain nausea but no vomiting. Genitourinary: No dysuria hematuria or fever Musculoskeletal: No gait dysfunction no rash no itching no edema Endocrine. Dyslipidemia but no thyroid dysfunction or diabetes Psychiatry: Has a stable mood without any signal agitation anxiety depression Constitutional: No fever no weight loss that I am aware of Hematological: Positive melena no hematochezia or hematuria PMH/Family/Social Past Medical History Gastritis peptic ulcer disease 40 years ago Hypertension Dyslipidemia BPH Recent colitis? On Cipro Flagyl Past Surgical History Appendix Tonsils Family History Significant Family History: no pertinent family hx Social History Non-smoker nonalcohol Smoking Status: Never smoker Exam/Review of Systems Vital Signs Vitals Vital Signs Date Time Temp Pulse Resp B/P Pulse Ox O2 Delivery O2 Flow Rate FiO2 04/21/17 17:55 98.0 66 20 163/71 98 04/21/17 16:42 Room Air Labs Result Diagram: 04/21/17 1137 04/21/17 1137 Medications Medications Current Medications Sodium Chloride (NS) 1,000 ml @ 100 mls/hr Q10H IV Last administered on t 18:05; Admin Dose 100 MLS/HR; Start 04/21/17 at 15:05 Ondansetron HCl (Zofran Inj) 4 mg Q6H PRN IV NAUSEA AND/OR VOMITING; Start 04/21 at 15:30 Acetaminophen (Tylenol Tab) 650 mg Q6H PRN PO PAIN LEVEL 1-3 OR FEVER; Start at 15:30 Acetaminophen (Tylenol Supp) 650 mg Q6H PRN [place] PAIN LEVEL 1-3 OR FEVER; Start 04/21/17 at 15:30 Acetaminophen/ Hydrocodone Bitart ([place] (5/325)) 1 tab Q6H PRN PO MODERATE PAIN LEVEL 4-6; Start 04/21/17 at 15:30 Morphine Sulfate (morphine) 2 mg Q4H PRN IV SEVERE PAIN LEVEL 7-10; Start at 15:30 Pantoprazole (Protonix Iv) 40 mg DAILY@06 IV ; Start 04/22/17 at 06:00 HERBERT GUTIERREZ MD Apr 21, 2017 18:26
[2017-04-21 20:10] VITALS: BP 149/70; RESP 18
[2017-04-22 02:00] VITALS: BP 121/59; RESP 18
[2017-04-22] MEDS: SOD CHLORIDE 0.9% 1,000 ML IV SCH ×2 (02:56→12:18)
[2017-04-22] MEDS: PANTOPRAZOLE 40 MG INJ IV SCH (05:54)
[2017-04-22 06:23] LABS: ADD SCAN DIFF NO
[2017-04-22 06:26] LABS: BASOPHILS % 0.5 % (0.0-2.0); EOSINOPHILS # 0.1 10^3/ul (0.0-0.5); EOSINOPHILS % 2.3 % (0.0-7.0); HEMATOCRIT 38.1 % (42.0-52.0); HEMOGLOBIN 13.1 g/dl (14.0-18.0); LYMPHOCYTES # 1.8 10^3/ul (0.8-2.9); LYMPHOCYTES % 30.3 % (15.0-51.0); MEAN CORPUSCULAR HEMOGLOBIN 29.9 pg (29.0-33.0); MEAN CORPUSCULAR HGB CONC 34.4 g/dl (32.0-37.0); MEAN PLATELET VOLUME 10.4 fl (7.4-10.4); MONOCYTE # 0.5 10^3/ul (0.3-0.9); NEUTROPHIL # 3.5 10^3/ul (1.6-7.5); NEUTROPHILS % 57.7 % (39.0-77.0); PLATELET COUNT 204 10^3/UL (140-415); RED BLOOD COUNT 4.38 10^6/ul (4.70-6.10); RED CELL DISTRIBUTION WIDTH 12.7 % (11.5-14.5)
[2017-04-22 07:02] LABS: ALBUMIN/GLOBULIN RATIO 1.6; BILIRUBIN,INDIRECT 0.5 mg/dl (0-1.1); BILIRUBIN,TOTAL 0.5 mg/dl (0.2-1.3); CALCIUM 8.5 mg/dl (8.4-10.2); CHOL/HDL RATIO 2.1 RATIO; CREATININE 0.79 mg/dl (0.61-1.24); PHOSPHORUS 2.8 mg/dl (2.5-4.9); POTASSIUM 3.9 mmol/L (3.5-5.1); TOTAL PROTEIN 6.5 g/dl (6.1-8.1)
[2017-04-22 07:20] VITALS: BP 134/62; RESP 16
[2017-04-22 07:24] LABS: THYROID STIMULATING HORMONE 1.19 MIU/L (0.465-4.680)
[2017-04-22 07:26] VITALS: BP 137/71; RESP 18
--- NOTE | 2017-04-22 11:33 | PN ---
Date/Time of Note Date/Time of Note DATE: 04/22/17 TIME: 11:27 Assessment/Plan VTE Prophylaxis VTE Prophylaxis Intervention: contraindicated, other VTE Contraindication Reason: bleeding Lines/Catheters IV Catheter Type (from Nrs): Peripheral IV Assessment/Plan Chief Complaint/Hosp Course Subjective: No further GI bleed. Feels constipated. No nausea dyspnea fever or chest pain. Still has some vague abdominal pain. Objective: Vital signs stable Physical exam No pallor Reg Clear Bs +/dimin w diffuse tenderness. Nd, no R/R/G No edema A/P 1. GI bleed; pud/gastritis vs colitis. Stable, cont antibiotics/ ppi/ npo. Gi will see. 2. Nonsteroidal use/hold 3. Possible recent diverticulitis; continue antibiotics 4. Probable chronic diverticulosis 5. Ho pud/ gastritis 6. DJD? 7. Chr htn dl, possible metabolic syndrome. Hold asa due to GI bleed. Problems: Exam/Review of Systems Vital Signs Vitals Vital Signs Date Time Temp Pulse Resp B/P Pulse Ox O2 Delivery O2 Flow Rate FiO2 04/22/17 07:26 97.9 63 18 137/71 99 04/21/17 16:42 Room Air Intake and Output 04/21/17 04/21/17 04/22/17 15:00 23:00 07:00 Intake Total 100 ml 1200 ml Balance 100 ml 1200 ml Results Result Diagram: 04/22/17 0531 04/22/17 0531 Results 24 hrs Laboratory Tests Test 04/21/17 11:37 04/22/17 05:31 White Blood Count 5.2 # 6.0 Red Blood Count 4.66 L 4.38 L Hemoglobin 13.9 L 13.1 L Hematocrit 40.7 L 38.1 L Mean Corpuscular Volume 87.3 87.0 Mean Corpuscular Hemoglobin 29.8 29.9 Mean Corpuscular Hemoglobin Concent 34.2 34.4 Red Cell Distribution Width 12.5 12.7 Platelet Count 207 204 Mean Platelet Volume 10.0 10.4 Neutrophils % 52.5 57.7 Lymphocytes % 37.7 30.3 Monocytes % 7.3 9.0 Eosinophils % 1.9 2.3 Basophils % 0.4 0.5 Nucleated Red Blood Cells % 0.0 0.0 Neutrophils # 2.8 3.5 Lymphocytes # 2.0 1.8 Monocytes # 0.4 0.5 Eosinophils # 0.1 0.1 Basophils # 0.0 0.0 Nucleated Red Blood Cells # 0.0 0.0 Prothrombin Time 14.4 H Prothrombin Time Ratio 1.1 INR International Normalized Ratio 1.12 Activated Partial Thromboplast Time 35.7 H Sodium Level 136 141 Potassium Level 4.0 3.9 Chloride Level 103 104 Carbon Dioxide Level 27 25 Anion Gap 10 16 Blood Urea Nitrogen 14 14 Creatinine 0.94 0.79 Glucose Level 113 88 Calcium Level 9.0 8.5 Total Bilirubin 0.5 0.5 Direct Bilirubin 0.00 0.00 Indirect Bilirubin 0.5 0.5 Aspartate Amino Transf (AST/SGOT) 60 H 115 #H Alanine Aminotransferase (ALT/SGPT) 64 91 H Alkaline Phosphatase 79 65 Total Protein 7.6 6.5 # Albumin 4.8 4.0 Globulin 2.80 2.50 Albumin/Globulin Ratio 1.71 1.60 Lipase 55 Hemoglobin A1c 6.1 H Phosphorus Level 2.8 Magnesium Level 2.0 Triglycerides Level 44 Cholesterol Level 72 L LDL Cholesterol, Calculated 30 HDL Cholesterol 33 Cholesterol/HDL Ratio 2.1 Thyroid Stimulating Hormone (TSH) 1.190 Medications Medications Current Medications Sodium Chloride (NS) 1,000 ml @ 100 mls/hr Q10H IV Last administered on 02:56; Admin Dose 100 MLS/HR; Start 04/21/17 at 15:05 Ondansetron HCl (Zofran Inj) 4 mg Q6H PRN IV NAUSEA AND/OR VOMITING; Start 04/21 at 15:30 Acetaminophen (Tylenol Tab) 650 mg Q6H PRN PO PAIN LEVEL 1-3 OR FEVER; Start at 15:30 Acetaminophen (Tylenol Supp) 650 mg Q6H PRN [place] PAIN LEVEL 1-3 OR FEVER; Start 04/21/17 at 15:30 Acetaminophen/ Hydrocodone Bitart ([place] (5/325)) 1 tab Q6H PRN PO MODERATE PAIN LEVEL 4-6; Start 04/21/17 at 15:30 Morphine Sulfate (morphine) 2 mg Q4H PRN IV SEVERE PAIN LEVEL 7-10 Last administered on 04/22/17 08:47; Admin Dose 2 MG; Start 04/21/17 at 15:30 Pantoprazole (Protonix Iv) 40 mg DAILY@06 IV Last administered on 04/22/17t 05: 54; Admin Dose 40 MG; Start 04/22/17 at 06:00 HERBERT GUTIERREZ MD Apr 22, 2017 11:32
[2017-04-22] MEDS: CIPROFLOXACIN 400MG/D5W 200 ML IVPB SCH ×2 (12:18→20:58)
--- NOTE | 2017-04-22 12:40 | CONS ---
Date/Time of Note Date/Time of Note DATE: 04/22/17 TIME: 12:24 Assessment/Plan Assessment/Plan Additional Assessment/Plan Assessment * Melena * GERD * Hypertension * Diverticulosis by CT scan Plan * EGD tomorrow risks and benefit explained to patient and agreed with the plan * full liquid diet * continue present management Consultation Date/Type/Reason Admit Date/Time Apr 21, 2017 at 14:20 Date of Consultation: Apr 22, 2017 Type of Consultation: Gastroenterology Reason for Consultation melena Referring Provider: HERBERT GUTIERREZ MD Hx of Present Illness 76 year old male who presented in the ER with chief complain of vague abdominal painx3 days duration with associated melena and nausea.He denies hematemesis, hematochezia,nor vomiting CT scan revealed 1. Aortoiliac atherosclerotic calcifications are noted. Colonic diverticulosis is seen without diverticulitis.. No mass, lymphadenopathy, or focal acute inflammatory process is identified.CBC revealed hemoglobin 13.1. He claimed history of gastric ulcer but no endoscopy performed,colonoscopy last year at [facility] with diagnosis diverticulosis We have discuss with the patient that we plan to do EGD in am and agreed with the planned procedure Constitutional: improved, no complaints Eyes: no complaints ENT: no complaints Respiratory: no complaints Cardiovascular: no complaints Gastrointestinal: nausea, pain Genitourinary: no complaints Musculoskeletal: no complaints Skin: no complaints Neurologic: no complaints Endocrine: no complaints Lymphatic: no complaints Psychological: nl mood/affect, no complaints Immunologic: no complaints Past Medical History Medical History: GERD, hypertension, peptic ulcer disease, other ( diverticulosis) Past Surgical History Past Surgical Hx: no surgical history Family History Significant Family History: no pertinent family hx Social History Smoking Status: Never smoker Exam/Review of Systems Vital Signs Vitals Vital Signs Date Time Temp Pulse Resp B/P Pulse Ox O2 Delivery O2 Flow Rate FiO2 04/22/17 07:26 97.9 63 18 137/71 99 04/21/17 16:42 Room Air Intake and Output 04/21/17 04/21/17 04/22/17 15:00 23:00 07:00 Intake Total 100 ml 1200 ml Balance 100 ml 1200 ml Exam Constitutional: alert, oriented, well developed Psych: nl mood/affect, no complaints Head: atraumatic, normocephalic Eyes: EOMI, PERRL, nl conjunctiva, nl lids, nl sclera ENMT: nl external ears & nose, nl lips & teeth, nl nasal mucosa & septum Neck: non-tender, supple Respiratory: clear to auscultation, normal air movement Cardiovascular: nl pulses, regular rate and rhythm Gastrointestinal: nl liver, spleen, non-tender, soft, No rebound or guarding Musculoskeletal: nl extremities to inspection, nl gait and stance Extremities: normal pulses Neurological: nl speech, nl strength Skin: nl turgor, No rash or lesions Lymph: nl lymph nodes Results Result Diagram: 04/22/1753004/22/17530 Results 24 hrs Laboratory Tests Test 04/22/17 05:31 04/22/17 06:00 White Blood Count 6.0 Red Blood Count 4.38 L Hemoglobin 13.1 L Hematocrit 38.1 L Mean Corpuscular Volume 87.0 Mean Corpuscular Hemoglobin 29.9 Mean Corpuscular Hemoglobin Concent 34.4 Red Cell Distribution Width 12.7 Platelet Count 204 Mean Platelet Volume 10.4 Neutrophils % 57.7 Lymphocytes % 30.3 Monocytes % 9.0 Eosinophils % 2.3 Basophils % 0.5 Nucleated Red Blood Cells % 0.0 Neutrophils # 3.5 Lymphocytes # 1.8 Monocytes # 0.5 Eosinophils # 0.1 Basophils # 0.0 Nucleated Red Blood Cells # 0.0 Sodium Level 141 Potassium Level 3.9 Chloride Level 104 Carbon Dioxide Level 25 Anion Gap 16 Blood Urea Nitrogen 14 Creatinine 0.79 Glucose Level 88 Hemoglobin A1c 6.1 H Calcium Level 8.5 Phosphorus Level 2.8 Magnesium Level 2.0 Total Bilirubin 0.5 Direct Bilirubin 0.00 Indirect Bilirubin 0.5 Aspartate Amino Transf (AST/SGOT) 115 #H Alanine Aminotransferase (ALT/SGPT) 91 H Alkaline Phosphatase 65 Total Protein 6.5 # Albumin 4.0 Globulin 2.50 Albumin/Globulin Ratio 1.60 Triglycerides Level 44 Cholesterol Level 72 L LDL Cholesterol, Calculated 30 HDL Cholesterol 33 Cholesterol/HDL Ratio 2.1 Thyroid Stimulating Hormone (TSH) 1.190 Stool Occult Blood NEGATIVE Medications Medications Current Medications Sodium Chloride (NS) 1,000 ml @ 100 mls/hr Q10H IV Last administered on t 12:18; Admin Dose 100 MLS/HR; Start 04/21/17 at 15:05 Ondansetron HCl (Zofran Inj) 4 mg Q6H PRN IV NAUSEA AND/OR VOMITING; Start 04/21 at 15:30 Acetaminophen (Tylenol Tab) 650 mg Q6H PRN PO PAIN LEVEL 1-3 OR FEVER; Start at 15:30 Acetaminophen (Tylenol Supp) 650 mg Q6H PRN [place] PAIN LEVEL 1-3 OR FEVER; Start 04/21/17 at 15:30 Acetaminophen/ Hydrocodone Bitart ([place] (5/325)) 1 tab Q6H PRN PO MODERATE PAIN LEVEL 4-6; Start 04/21/17 at 15:30 Morphine Sulfate (morphine) 2 mg Q4H PRN IV SEVERE PAIN LEVEL 7-10 Last administered on 04/22/17 08:47; Admin Dose 2 MG; Start 04/21/17 at 15:30 Pantoprazole 40 mg 40 mg DAILY@06 IV Last administered on 04/22/17 05:54; Admin Dose 40 MG; Start 04/22/17 at 06:00 Ciprofloxacin/ Dextrose 200 ml @ 200 mls/hr Q12 IVPB Last administered on 12:18; Admin Dose 200 MLS/HR; Start 04/22/17 at 12:00 Metronidazole (Flagyl 500 Mg (Pmx)) 100 ml @ 100 mls/hr Q8 IVPB ; Start at 13:00 ELIEZER CHAUHAN MD Apr 22, 2017 12:36
[2017-04-22] MEDS: metroNIDAZOLE 500 MG/NS (PMX) 100 ML IVPB SCH ×2 (13:22→22:47)
[2017-04-22 20:00] VITALS: BP 155/75; RESP 18
[2017-04-23] VITALS (10 sets, daily range): BP systolic 83–147; BP diastolic 41–70; PULSE 58–66; RESP 13–19
[2017-04-23] MEDS: SOD CHLORIDE 0.9% 1,000 ML IV SCH ×4 (02:33→19:37)
[2017-04-23] MEDS: metroNIDAZOLE 500 MG/NS (PMX) 100 ML IVPB SCH (05:11)
[2017-04-23] MEDS: PANTOPRAZOLE 40 MG INJ IV SCH (05:11)
[2017-04-23 06:11] LABS: ADD SCAN DIFF NO
[2017-04-23 06:33] LABS: INR 1.09; PROTIME 14.1 Sec (12.2-14.2); PT RATIO 1.1
[2017-04-23 06:50] LABS: BASOPHILS % 0.3 % (0.0-2.0); EOSINOPHILS # 0.2 10^3/ul (0.0-0.5); EOSINOPHILS % 2.8 % (0.0-7.0); HEMATOCRIT 39.3 % (42.0-52.0); HEMOGLOBIN 13.6 g/dl (14.0-18.0); LYMPHOCYTES # 2.1 10^3/ul (0.8-2.9); LYMPHOCYTES % 32.8 % (15.0-51.0); MEAN CORPUSCULAR HEMOGLOBIN 29.8 pg (29.0-33.0); MEAN CORPUSCULAR HGB CONC 34.6 g/dl (32.0-37.0); MEAN PLATELET VOLUME 10.5 fl (7.4-10.4); MONOCYTE # 0.5 10^3/ul (0.3-0.9); MONOCYTES % 8.3 % (0.0-11.0); NEUTROPHIL # 3.6 10^3/ul (1.6-7.5); NEUTROPHILS % 55.6 % (39.0-77.0); PLATELET COUNT 213 10^3/UL (140-415); RED BLOOD COUNT 4.57 10^6/ul (4.70-6.10); RED CELL DISTRIBUTION WIDTH 12.7 % (11.5-14.5); WHITE BLOOD COUNT 6.5 10^3/ul (4.8-10.8)
[2017-04-23 06:53] LABS: ALBUMIN 4.1 g/dl (3.3-4.9); ALBUMIN/GLOBULIN RATIO 1.64; BILIRUBIN,INDIRECT 0.4 mg/dl (0-1.1); BILIRUBIN,TOTAL 0.4 mg/dl (0.2-1.3); CALCIUM 8.4 mg/dl (8.4-10.2); CREATININE 0.82 mg/dl (0.61-1.24); MAGNESIUM 1.8 mg/dl (1.7-2.5); PHOSPHORUS 2.7 mg/dl (2.5-4.9); POTASSIUM 3.6 mmol/L (3.5-5.1); TOTAL PROTEIN 6.6 g/dl (6.1-8.1)
[2017-04-23] MEDS: CIPROFLOXACIN 400MG/D5W 200 ML IVPB SCH (09:34)
--- NOTE | 2017-04-23 13:38 | PN ---
Date/Time of Note Date/Time of Note DATE: 04/23/17 TIME: 13:37 Assessment/Plan VTE Prophylaxis VTE Prophylaxis Intervention: SCD's Lines/Catheters IV Catheter Type (from [facility]): Peripheral IV Assessment/Plan Chief Complaint/Hosp Course 1. Melena. Stable H&H. Continue proton pump inhibitors. The patient scheduled for esophagogastroduodenoscopy. 2. Essential hypertension. Continue antihypertensives. 3. Prediabetes. Hemoglobin A1c of 6.1. 4. Colonic diverticulosis without diverticulitis. Encourage high-fiber diet. Will discontinue antibiotics since the patient has no evidence of diverticulitis. 5. Dyslipidemia. Fasting lipid panel satisfactory. 6. Fluids, electrolytes, and nutrition. N.p.o. except for medications. 7. DVT prophylaxis. Bilateral sequential compression devices. 8. Gastrointestinal prophylaxis. Proton pump inhibitors. 9. Plan. Await esophagogastroduodenoscopy. Continue proton pump inhibitors. Discontinue antibiotics. Case discussed with Dr. Rocha. Problems: Subjective 24 Hr Interval Summary Free Text/Dictation Denies any melena. Exam/Review of Systems Vital Signs Vitals Vital Signs Date Time Temp Pulse Resp B/P Pulse Ox O2 Delivery O2 Flow Rate FiO2 04/22/17 20:00 98.3 70 18 155/75 96 04/21/17 16:42 Room Air Intake and Output 04/22/17 04/22/17 04/23/17 15:00 23:00 07:00 Intake Total 800 ml 2400 ml Output Total 600 ml 1300 ml 700 ml Balance -600 ml -500 ml 1700 ml Exam General: Adequately build 76 year-old male lying in bed in no apparent distress. HEENT: Normocephalic, atraumatic. Eyes: Anicteric sclerae, conjunctivae clear. ENT: Nasal septum midline, oral mucosa moist. Neck supple, no JVD noticed. Respiratory: Bilaterally clear breath sounds. No use of accessory muscles of respiration. No adventitious breath sounds. Cardiovascular: S1, S2 heard. No murmurs or gallops. Abdomen: Soft and nondistended. Bowel sounds positive in all 4 quadrants. Diffuse right and left lower quadrant tenderness. Genitourinary: Deferred. Extremities: No cyanosis, no clubbing, no edema. Peripheral pulses palpable. Neurologic: Cranial nerves II through XII grossly intact. The patient is awake, alert, and oriented. Skin: Normal skin turgor. No skin rashes. Results Result Diagram: 04/23/17 0515 04/23/17 0515 Results 24 hrs Laboratory Tests Test 04/23/17 05:15 White Blood Count 6.5 Red Blood Count 4.57 L Hemoglobin 13.6 L Hematocrit 39.3 L Mean Corpuscular Volume 86.0 Mean Corpuscular Hemoglobin 29.8 Mean Corpuscular Hemoglobin Concent 34.6 Red Cell Distribution Width 12.7 Platelet Count 213 Mean Platelet Volume 10.5 H Neutrophils % 55.6 Lymphocytes % 32.8 Monocytes % 8.3 Eosinophils % 2.8 Basophils % 0.3 Nucleated Red Blood Cells % 0.0 Neutrophils # 3.6 Lymphocytes # 2.1 Monocytes # 0.5 Eosinophils # 0.2 Basophils # 0.0 Nucleated Red Blood Cells # 0.0 Prothrombin Time 14.1 Prothrombin Time Ratio 1.1 INR International Normalized Ratio 1.09 Sodium Level 138 Potassium Level 3.6 Chloride Level 105 Carbon Dioxide Level 25 Anion Gap 12 Blood Urea Nitrogen 10 Creatinine 0.82 Glucose Level 90 Calcium Level 8.4 Phosphorus Level 2.7 Magnesium Level 1.8 Total Bilirubin 0.4 Direct Bilirubin 0.00 Indirect Bilirubin 0.4 Aspartate Amino Transf (AST/SGOT) 88 H Alanine Aminotransferase (ALT/SGPT) 99 H Alkaline Phosphatase 67 Total Protein 6.6 Albumin 4.1 Globulin 2.50 Albumin/Globulin Ratio 1.64 Medications Medications Current Medications Sodium Chloride (NS) 1,000 ml @ 100 mls/hr Q10H IV Last administered on t 02:33; Admin Dose 100 MLS/HR; Start 04/21/17 at 15:05 Ondansetron HCl (Zofran Inj) 4 mg Q6H PRN IV NAUSEA AND/OR VOMITING; Start 04/21 at 15:30 Acetaminophen (Tylenol Tab) 650 mg Q6H PRN PO PAIN LEVEL 1-3 OR FEVER; Start at 15:30 Acetaminophen (Tylenol Supp) 650 mg Q6H PRN [place] PAIN LEVEL 1-3 OR FEVER; Start 04/21/17 at 15:30 Acetaminophen/ Hydrocodone Bitart ([place] (5/325)) 1 tab Q6H PRN PO MODERATE PAIN LEVEL 4-6; Start 04/21/17 at 15:30 Morphine Sulfate (morphine) 2 mg Q4H PRN IV SEVERE PAIN LEVEL 7-10 Last administered on 04/22/17 08:47; Admin Dose 2 MG; Start 04/21/17 at 15:30 Pantoprazole 40 mg 40 mg DAILY@06 IV Last administered on 04/23/17 05:11; Admin Dose 40 MG; Start 04/22/17 at 06:00 Ciprofloxacin/ Dextrose 200 ml @ 200 mls/hr Q12 IVPB Last administered on 04/23 09:34; Admin Dose 200 MLS/HR; Start 04/22/17 at 12:00 Metronidazole (Flagyl 500 Mg (Pmx)) 100 ml @ 100 mls/hr Q8 IVPB Last administered on 04/23/17 05:11; Admin Dose 100 MLS/HR; Start 04/22/17 at 13:00 GALLITO NIETO NP Apr 23, 2017 13:38
--- NOTE | 2017-04-23 13:51 | RADRPT ---
Vent Rate: 65 bpm RR Interval: 0 msec [place] Interval: 170 msec QRS Duration: 110 msec QT Interval: 416 msec QTC Interval: 432 msec P-R-T [place]: 36 - 30 - 62 degrees Normal sinus rhythm Incomplete right bundle branch block Borderline ECG Electronically Signed By: Ron Villalta [id number]
[2017-04-23] MEDS ORDERED: hydrALAzine 20 MG INJ IV PRN ×2 (14:00→18:00)
[2017-04-23] MEDS ORDERED: LIDOCAINE 2% (SDV) 5 ML INJ ONE (17:53)
[2017-04-23] MEDS ORDERED: PROPOFOL 20 ML ONE (17:53)
[2017-04-23] MEDS ORDERED: MIDAZOLAM 1 MG/ML 2 ML INJ ONE (17:53)
[2017-04-23] MEDS ORDERED: ONDANSETRON 4 MG INJ IV PRN (18:00)
[2017-04-23] MEDS ORDERED: LABETALOL HCL 20MG INJ IV PRN (18:00)
[2017-04-23] MEDS ORDERED: EPHEDrine SULFATE 50 MG/5 ML SYG IV PRN (18:00)
[2017-04-23] MEDS ORDERED: DIPHENHYDRAMINE 50 MG INJ IV PRN (18:00)
[2017-04-23] MEDS ORDERED: MEPERIDINE 25 MG INJ IV PRN (18:00)
--- NOTE | 2017-04-23 18:10 | OPR ---
Date/Time of Note Date/Time of Note DATE: 04/23/17 TIME: 18:07 Operative Report Preoperative Diagnosis * GI bleeding/melena Postoperative Diagnosis Impression: * Distal esophagitis. * Rule out Irizarry's esophagus. Biopsies obtained * Small hiatal hernia. * Moderate gastritis. Rule out H. pylori infection. Biopsies obtained Plan: * Continue PPI therapy * Review pathology * Advance diet as tolerated . Operation/Procedure Performed * EGD with biopsies Surgeon: ELIEZER CHAUHAN MD Anesthesia: MAC Estimated Blood Loss: none Specimens * Distal esophagus * Gastric body and antrum Grafts/Implants * Not applicable Complications: None ELIEZER CHAUHAN MD Apr 23, 2017 18:10
[2017-04-23] MEDS ORDERED: TAMSULOSIN (SR) 0.4 MG CAP PO SCH (21:00)
[2017-04-24 02:00] VITALS: BP 135/62; RESP 18
[2017-04-24] MEDS: SOD CHLORIDE 0.9% 1,000 ML IV SCH (05:26)
[2017-04-24] MEDS: PANTOPRAZOLE 40 MG INJ IV SCH (05:26)
[2017-04-24 05:46] LABS: ADD SCAN DIFF NO
[2017-04-24 05:47] LABS: BASOPHILS % 0.5 % (0.0-2.0); EOSINOPHILS # 0.2 10^3/ul (0.0-0.5); EOSINOPHILS % 2.5 % (0.0-7.0); HEMATOCRIT 38.6 % (42.0-52.0); HEMOGLOBIN 13.4 g/dl (14.0-18.0); LYMPHOCYTES # 2.1 10^3/ul (0.8-2.9); MEAN CORPUSCULAR HEMOGLOBIN 29.8 pg (29.0-33.0); MEAN CORPUSCULAR HGB CONC 34.7 g/dl (32.0-37.0); MEAN PLATELET VOLUME 10.4 fl (7.4-10.4); MONOCYTE # 0.6 10^3/ul (0.3-0.9); MONOCYTES % 9.6 % (0.0-11.0); NEUTROPHIL # 3.5 10^3/ul (1.6-7.5); NEUTROPHILS % 54.2 % (39.0-77.0); PLATELET COUNT 205 10^3/UL (140-415); RED BLOOD COUNT 4.49 10^6/ul (4.70-6.10); RED CELL DISTRIBUTION WIDTH 12.6 % (11.5-14.5); WHITE BLOOD COUNT 6.5 10^3/ul (4.8-10.8)
[2017-04-24 06:19] LABS: MAGNESIUM 1.8 mg/dl (1.7-2.5); PHOSPHORUS 3.3 mg/dl (2.5-4.9)
[2017-04-24 06:30] LABS: ALBUMIN 3.9 g/dl (3.3-4.9); ALBUMIN/GLOBULIN RATIO 1.56; BILIRUBIN,INDIRECT 0.4 mg/dl (0-1.1); BILIRUBIN,TOTAL 0.4 mg/dl (0.2-1.3); CALCIUM 8.7 mg/dl (8.4-10.2); CREATININE 0.76 mg/dl (0.61-1.24); POTASSIUM 3.5 mmol/L (3.5-5.1); TOTAL PROTEIN 6.4 g/dl (6.1-8.1)
[2017-04-24 07:45] VITALS: BP 138/66; RESP 20
[2017-04-24] MEDS ORDERED: LOSARTAN 50 MG TAB PO SCH (09:00)
--- NOTE | 2017-04-24 13:13 | PDOCDIS ---
Discharge Instructions DIAGNOSIS Discharge Diagnosis Distal esophagitis, gastritis. CONDITION Patient Condition: Stable HOME CARE INSTRUCTIONS: Diet Instructions: RegularSpecial Diet: Preferably low carbohydrate. FOLLOW UP/APPOINTMENTS Follow-up Plan Se Angeles MD Specialty: Internal Medicine Office Address: [address] [place], [place] [id number] Office OTHER ORDERS: Other Orders: 1. Resume home medications. Continue taking Protonix per prescription. Avoid using NSAIDs (aspirin, ibuprofen, etc.). 2. Regular, preferably low-cholesterol diet. 3. Resume activities as tolerated. 4. Follow-up with your primary care physician in 1 week. If you do not have a primary care physician, please call Dr. Se Angeles's office GALLITO NIETO NP Apr 24, 2017 13:13
[2017-04-24] MEDS ORDERED: PANT40TA3 PO (13:18)
--- NOTE | 2017-04-24 13:37 | PN ---
Date/Time of Note Date/Time of Note DATE: 04/24/17 TIME: 13:31 Assessment/Plan VTE Prophylaxis VTE Prophylaxis Intervention: ambulation Lines/Catheters IV [facility] ([facility] Peripheral IV Assessment/Plan Assessment/Plan Assessment * Melena resolved EGD Distal esophagitis. Rule out Irizarry's esophagus. Biopsies obtained Small hiatal hernia. Moderate gastritis. Rule out H. pylori infection. Biopsies obtained * Hypertension * Diverticulosis by CT scan Plan * Pantoprazole 40 mg BID X6 weeks * Stable for outpatient management * Case discussed with Subjective 24 Hr Interval Summary Free Text/Dictation * Course reviewed with RN * Patient seen and examined * EGD 04/23/2017 Distal esophagitis. Rule out Irizarry's esophagus. Biopsies obtained Small hiatal hernia. Moderate gastritis. Rule out H. pylori infection. Biopsies obtained Exam/Review of Systems Vital Signs Vitals Vital Signs Date Time Temp Pulse Resp B/P Pulse Ox O2 Delivery O2 Flow Rate FiO2 04/24/17 07:45 98.0 61 20 138/66 95 04/24/17 02:00 Room Air 04/23/17 18:25 2.0 Intake and Output 04/23/17 04/23/17 04/24/17 15:00 23:00 07:00 Intake Total 900 ml 1000 ml Balance 900 ml 1000 ml Exam Constitutional: alert, oriented Eyes: nl conjunctiva Neck: non-tender, supple Respiratory: clear to auscultation, normal air movement Cardiovascular: nl pulses, regular rate and rhythm Gastrointestinal: nl liver, spleen, non-tender, soft Musculoskeletal: nl extremities to inspection, nl gait and stance Extremities: normal pulses Neurological: nl mental status, nl speech Skin: nl turgor, No rash or lesions Results Result Diagram: 04/24/1751904/24/17519 Results 24 hrs Laboratory Tests Test 04/24/17 05:20 White Blood Count 6.5 Red Blood Count 4.49 L Hemoglobin 13.4 L Hematocrit 38.6 L Mean Corpuscular Volume 86.0 Mean Corpuscular Hemoglobin 29.8 Mean Corpuscular Hemoglobin Concent 34.7 Red Cell Distribution Width 12.6 Platelet Count 205 Mean Platelet Volume 10.4 Neutrophils % 54.2 Lymphocytes % 33.0 Monocytes % 9.6 Eosinophils % 2.5 Basophils % 0.5 Nucleated Red Blood Cells % 0.0 Neutrophils # 3.5 Lymphocytes # 2.1 Monocytes # 0.6 Eosinophils # 0.2 Basophils # 0.0 Nucleated Red Blood Cells # 0.0 Sodium Level 140 Potassium Level 3.5 Chloride Level 102 Carbon Dioxide Level 26 Anion Gap 16 Blood Urea Nitrogen 9 Creatinine 0.76 Glucose Level 94 Calcium Level 8.7 Phosphorus Level 3.3 Magnesium Level 1.8 Total Bilirubin 0.4 Direct Bilirubin 0.00 Indirect Bilirubin 0.4 Aspartate Amino Transf (AST/SGOT) 74 H Alanine Aminotransferase (ALT/SGPT) 102 H Alkaline Phosphatase 66 Total Protein 6.4 Albumin 3.9 Globulin 2.50 Albumin/Globulin Ratio 1.56 Medications Medications Current Medications Sodium Chloride (NS) 1,000 ml @ 100 mls/hr Q10H IV Last administered on 05:26; Admin Dose 100 MLS/HR; Start 04/21/17 at 15:05 Ondansetron HCl (Zofran Inj) 4 mg Q6H PRN IV NAUSEA AND/OR VOMITING; Start 04/21 at 15:30 Acetaminophen (Tylenol Tab) 650 mg Q6H PRN PO PAIN LEVEL 1-3 OR FEVER; Start at 15:30 Acetaminophen (Tylenol Supp) 650 mg Q6H PRN [place] PAIN LEVEL 1-3 OR FEVER; Start 04/21/17 at 15:30 Acetaminophen/ Hydrocodone Bitart ([place] (5/325)) 1 tab Q6H PRN PO MODERATE PAIN LEVEL 4-6; Start 04/21/17 at 15:30 Morphine Sulfate (morphine) 2 mg Q4H PRN IV SEVERE PAIN LEVEL 7-10 Last administered on 04/22/17 08:47; Admin Dose 2 MG; Start 04/21/17 at 15:30 Pantoprazole (Protonix Iv) 40 mg DAILY@06 IV Last administered on 04/24/17 05: 26; Admin Dose 40 MG; Start 04/22/17 at 06:00 Hydralazine HCl (Apresoline) 10 mg Q6H PRN IV SBP>160; Start 04/23/17 at 14:00 Carvedilol (Coreg) 6.25 mg BID PO Last administered on 04/24/17 09:26; Admin Dose 6.25 MG; Start 04/23/17 at 21:00 Losartan Potassium (Cozaar) 50 mg DAILY PO Last administered on 04/24/17 09:25 ; Admin Dose 50 MG; Start 04/24/17 at 09:00 Tamsulosin HCl (Flomax) 0.4 mg HS PO Last administered on 04/23/17 20:57; Admin Dose 0.4 MG; Start 04/23/17 at 21:00 ALLA CHEUNG NP Apr 24, 2017 13:37
--- NOTE | 2017-04-24 14:00 | DS ---
Date/Time of Note Date/Time of Note DATE: 04/24/17 TIME: 13:59 Discharge Summary Admission/Discharge Info Admit Date/Time Apr 21, 2017 at 14:20 Discharge Date/Time Discharge Diagnosis 1. Distal esophagitis 2. Gastritis. 3. Essential hypertension. 4. Prediabetes. 5. Colonic diverticulosis without diverticulitis. 6. Dyslipidemia. Patient Condition: Stable Consults 1. Anatoliy Lozano MD, Gastroenterology. Procedures 04/23/2017. Esophagogastroduodenoscopy. Impression: * Distal esophagitis. * Rule out Irizarry's esophagus. Biopsies obtained * Small hiatal hernia. * Moderate gastritis. Rule out H. pylori infection. Biopsies obtained Plan: * Continue PPI therapy * Review pathology * Advance diet as tolerated CT Scan of the Abdomen and Pelvis IMPRESSION: 1. Aortoiliac atherosclerotic calcifications are noted. 2. Colonic diverticulosis is seen without diverticulitis. 3. No mass, lymphadenopathy, or focal acute inflammatory process is identified. CXR IMPRESSION: 1. Mild left basilar scarring, unchanged. 2. Atherosclerosis. Hx of Present Illness This is a 76-year-old male with past medical history of essential hypertension, dyslipidemia, diverticulosis with recent diverticulitis came to the emergency room with chief complaint of melena for 1-2 days. There was no reported hematochezia. The patient denied any hematemesis. The patient was also complaining of abdominal pain that was described as crampy and diffuse throughout the abdomen. Patient underwent a CT scan of the abdomen and pelvis in the emergency room that showed colonic diverticulosis without diverticulitis. Patient stool for occult blood was negative. The patient's hemoglobin and hematocrit were 13.9 and 40.7 respectively. Hospital Course The patient was admitted to inpatient setting. Gastroenterology consult was called. The patient underwent esophagogastroduodenoscopy on 04/23/2017 that showed distal esophagitis and moderate gastritis. Gastroenterology recommended to continue the patient on proton pump inhibitor therapy. The patient's H&H remained stable and the patient did not require any blood transfusion throughout the hospital course. The patient has underlying essential hypertension. He was maintained on antihypertensives for the same. The patient was also noticed to have prediabetes with hemoglobin A1c of 6.1. Patient has history of dyslipidemia. The patient's fasting lipid panel was unsatisfactory. The patient has history of colonic diverticulitis and was recently on treatment for the same. The patient's CT scan of the abdomen and pelvis showed colonic diverticulosis without diverticulitis. The patient had a stable hospital course. The patient was cleared by consultants to be discharged home. Discharge Instructions 1. Resume home medications. Continue taking Protonix per prescription. Avoid using NSAIDs (aspirin, ibuprofen, etc.). 2. Regular, preferably low-cholesterol diet. 3. Resume activities as tolerated. 4. Follow-up with your primary care physician in 1 week. If you do not have a primary care physician, please call Dr. Se Angeles's office. The patient verbalized understanding of his discharge instructions. At this time I would like to thank Dr. Lozano for seeing the patient, doing the necessary procedures, and providing clinical recommendations. The case and management of this patient was fully discussed with Dr. Rocha. Home Meds Active Scripts Pantoprazole* (Protonix*) 40 Mg Tablet., 40 MG PO BID, #60 TAB Prov:GALLITO NIETO NP 04/24/17 Ondansetron (Ondansetron Odt) 4 Mg Tab.rapdis, 4 MG PO Q6H Y for NAUSEA AND/OR VOMITING, #10 TAB Prov:HIGINIO PAIZ 04/17/17 Tramadol HCl (Tramadol HCl) 50 Mg Tablet, 50 MG PO Q4 Y for PAIN, #20 TAB Prov:HIGINIO PAIZ S. 04/17/17 Reported Medications Multivitamin W-Minerals/Lutein (CENTRUM SILVER ULTRA MEN'S TAB) 1 Each Tablet, 1 EACH PO, TAB 04/17/17 Acetaminophen* (Acetaminophen*) 500 MG Extra Strength Tablet, 500 MG PO Q4H Y for PAIN AND OR ELEVATED TEMP, TAB 04/17/17 Carvedilol* (Carvedilol*) 6.25 Mg Tablet, 6.25 MG PO BID, #60 TAB 01/08/17 Atorvastatin* (Atorvastatin*) 40 Mg Tablet, 40 MG PO QHS, #30 TAB 01/08/17 Losartan Potassium* (Losartan Potassium*) 50 Mg Tablet, 50 MG PO DAILY, TAB 09/26/16 Tamsulosin Hcl* (Flomax*) 0.4 Mg Cap.er.24h, 0.4 MG PO HS, CAP 03/24/15 Discontinued Reported Medications Aspirin* (Aspirin* Chew) 81 Mg Tab.chew, 81 MG PO DAILY, TAB.CHEW 09/26/16 Discontinued Scripts Metronidazole* (Flagyl*) 500 Mg Tablet, 500 MG PO TID for 7 Days, TAB Prov:GIANNAHIGINIO MUNGUIA 04/17/17 Ciprofloxacin Hcl* (Ciprofloxacin Hcl*) 500 Mg Tablet, 500 MG PO BID for 7 Days , TAB Prov:GIANNAHIGINIO MUNGUIA S. 04/17/17 Follow-up Plan Follow-up with your primary care physician in 1 week. Primary Care Provider Thomas Oneill Time spent on discharge: > 30 minutes Pending Labs Laboratory Tests Test 04/24/17 05:20 White Blood Count 6.510^3/ul (4.8-10.8) Red Blood Count 4.4910^6/ul (4.70-6.10) Hemoglobin 13.4g/dl (14.0-18.0) Hematocrit 38.6% (42.0-52.0) Mean Corpuscular Volume 86.0fl (82.0-101.0) Mean Corpuscular Hemoglobin 29.8pg (29.0-33.0) Mean Corpuscular Hemoglobin Concent 34.7g/dl (32.0-37.0) Red Cell Distribution Width 12.6% (11.5-14.5) Platelet Count 01578^3/UL (140-415) Mean Platelet Volume 10.4fl (7.4-10.4) Neutrophils % 54.2% (39.0-77.0) Lymphocytes % 33.0% (15.0-51.0) Monocytes % 9.6% (0.0-11.0) Eosinophils % 2.5% (0.0-7.0) Basophils % 0.5% (0.0-2.0) Nucleated Red Blood Cells % 0.0/100WBC (0.0-0.0) Neutrophils # 3.510^3/ul (1.6-7.5) Lymphocytes # 2.110^3/ul (0.8-2.9) Monocytes # 0.610^3/ul (0.3-0.9) Eosinophils # 0.210^3/ul (0.0-0.5) Basophils # 0.010^3/ul (0.0-0.1) Nucleated Red Blood Cells # 0.010^3/ul (0.0-0.0) Sodium Level 140mmol/L (135-144) Potassium Level 3.5mmol/L (3.5-5.1) Chloride Level 102mmol/L (97-110) Carbon Dioxide Level 26mmol/L (21-31) Anion Gap 16 (8-16) Blood Urea Nitrogen 9mg/dl (7-20) Creatinine 0.76mg/dl (0.61-1.24) Glucose Level 94mg/dl (70-220) Calcium Level 8.7mg/dl (8.4-10.2) Phosphorus Level 3.3mg/dl (2.5-4.9) Magnesium Level 1.8mg/dl (1.7-2.5) Total Bilirubin 0.4mg/dl (0.2-1.3) Direct Bilirubin 0.00mg/dl (0.00-0.20) Indirect Bilirubin 0.4mg/dl (0-1.1) Aspartate Amino Transf (AST/SGOT) 74IU/L (15-46) Alanine Aminotransferase (ALT/SGPT) 102IU/L (13-69) Alkaline Phosphatase 66IU/L (42-121) Total Protein 6.4g/dl (6.1-8.1) Albumin 3.9g/dl (3.3-4.9) Globulin 2.50g/dl (1.3-3.2) Albumin/Globulin Ratio 1.56 GALLITO NIETO NP Apr 24, 2017 14:00 GALLITO NIETO NP Apr 24, 2017 14:00
[2017-04-24 15:30] VITALS: BP 129/68; RESP 18
== END 2017-04-24 16:32 | disposition home or self-care (01) | DRG 392 ==
LOC: E/R 09:35 → MS2 14:20
PROVIDERS: ADMIT Hospitalist; ATTEND Hospitalist
PROC: 0DB68ZX Excision of Stomach, Via Natural or Artificial Opening Endoscopic, Diagnostic (ICD-10-PCS; 2017-04-23)
PROC: 0DB58ZX Excision of Esophagus, Via Natural or Artificial Opening Endoscopic, Diagnostic (ICD-10-PCS; principal; 2017-04-23 18:00)
DX: K20.9 Esophagitis, unspecified (principal); K92.1 Melena; I10 Essential (primary) hypertension; K57.90 Diverticulosis of intestine, part unspecified, without perforation or abscess without bleeding; K29.50 Unspecified chronic gastritis without bleeding; K44.9 Diaphragmatic hernia without obstruction or gangrene; E78.5 Hyperlipidemia, unspecified; R73.03 Prediabetes; Z87.11 Personal history of peptic ulcer disease; Z79.82 Long term (current) use of aspirin
CPT/HCPCS: 36415; 71020; 74176; 80053; 80061; 81003; 82270; 83036; 83690; 83735; 84100; 84443; 85025; 85610; 85730; 86850; 86900; 86901; 88305; 88312; 88313; 93005; 96365; 96366; 96376; C9113; J0744; J2250; J2270; J7030

== ENCOUNTER 2017-06-03 10:22 | Emergency (ER) | payer OTHER ==
[~2017-06-03] VITALS: Ht 165.1 cm; Wt 72.5 kg
[~2017-06-03 10:22] MED LIST changes: -ASPI81TA3 PO; -CIPR500T4 PO; -METR500T PO; +PANT40TA3 PO
[2017-06-03 10:26] VITALS: Ht 165.1 cm; Wt 72.5 kg
[2017-06-03] MEDS ORDERED: morphine 2 MG INJ IV STA (11:36)
[2017-06-03] MEDS ORDERED: ONDANSETRON 4 MG INJ IV STA (11:36)
[2017-06-03] MEDS ORDERED: SOD CHLORIDE 0.9% 1,000 ML IV STA (11:36)
--- NOTE | 2017-06-03 11:52 | ERD ---
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 The patient is an exquisitely poor historian. Despite the use of an adult health clinical nurse specialist this is very limited. It appears for approximately 3 days he has pain to his body. The most localizing aspect of his pain is the left side of his abdomen. He also describes pain to bilateral shoulders bilateral arms bilateral legs, head. He describes the pain is dull and worse when he is moving. He denies any nausea vomiting or diarrhea though this was difficult to ascertain. He denies any chest pain or shortness of breath. No pleuritic pain. No fevers or chills. The patient had a recent hospitalization within the last 1.5 months for suspected GI bleed and was diagnosed with esophagitis and gastritis. Patient does have a history of diverticulosis. Remainder of HPI is limited. ROS All systems reviewed and are negative except as per history of present illness. Medications Home Meds Reported Medications Carvedilol* (Carvedilol*) 6.25 Mg Tablet, 6.25 MG PO BID, #60 TAB 01/08/17 Atorvastatin* (Atorvastatin*) 40 Mg Tablet, 40 MG PO QHS, #30 TAB 01/08/17 Losartan Potassium* (Losartan Potassium*) 50 Mg Tablet, 50 MG PO DAILY, TAB 09/26/16 Tamsulosin Hcl* (Flomax*) 0.4 Mg Cap.er.24h, 0.4 MG PO HS, CAP 03/24/15 Discontinued Reported Medications Multivitamin W-Minerals/Lutein (CENTRUM SILVER ULTRA MEN'S TAB) 1 Each Tablet, 1 EACH PO, TAB 04/17/17 Acetaminophen* (Acetaminophen*) 500 MG Extra Strength Tablet, 500 MG PO Q4H Y for PAIN AND OR ELEVATED TEMP, TAB 04/17/17 Discontinued Scripts Pantoprazole* (Protonix*) 40 Mg Tablet., 40 MG PO BID, #60 TAB Prov:GALLITO NIETO NP 04/24/17 Ondansetron (Ondansetron Odt) 4 Mg Tab.rapdis, 4 MG PO Q6H Y for NAUSEA AND/OR VOMITING, #10 TAB Prov:HIGINIO PAIZ 04/17/17 Tramadol HCl (Tramadol HCl) 50 Mg Tablet, 50 MG PO Q4 Y for PAIN, #20 TAB Prov:HIGINIO PAIZ 04/17/17 Allergies Allergies: Coded Allergies: No Known Drug Allergies (Unverified Allergy, Unknown, 06/03/17) PMhx/Soc History of Surgery: Yes (apendicitis removal) Anesthesia Reaction: No Hx Neurological Disorder: No Hx Respiratory Disorders: No Hx Cardiac Disorders: Yes (HTN) Hx Psychiatric Problems: No Hx Miscellaneous Medical Probl: Yes (dislipidemia, prostate problems) Hx Alcohol Use: No Hx Substance Use: No Hx Tobacco Use: No Smoking Status: Never smoker FmHx Family History: No diabetes Physical Exam Vitals Vital Signs Date Time Temp Pulse Resp B/P Pulse Ox O2 Delivery O2 Flow Rate FiO2 06/03/17 10:26 98.3 69 20 130/63 99 Physical Exam General: Well developed, well nourished, no acute distress Head: Normocephalic, atraumatic. Eyes: Pupils equally reactive, EOM intact ENT: Moist mucous membranes Neck: Supple, no lymphadenopathy Respiratory: Lungs clear bilaterally, no distress Cardiovascular: RRR, no murmurs, rubs, or gallops Abdominal: Soft, mild diffuse but inconsistent abdominal tenderness without rebound or guarding, no pulsatile mass : Deferred MSK: No edema, no unilateral swelling, 5/5 strength Neurologic: Alert and oriented, moving all extremities, normal speech, no focal weakness, no cerebellar signs Skin: No rash Psych: Normal mood Result Diagram: 06/03/17 1140 06/03/17 1140 Results 24 hrs Laboratory Tests Test 06/03/17 11:40 White Blood Count 5.110^3/ul Red Blood Count 4.7510^6/ul Hemoglobin 14.5g/dl Hematocrit 41.3% Mean Corpuscular Volume 86.9fl Mean Corpuscular Hemoglobin 30.5pg Mean Corpuscular Hemoglobin Concent 35.1g/dl Red Cell Distribution Width 12.6% Platelet Count 08722^3/UL Mean Platelet Volume 10.7fl Neutrophils % 48.2% Lymphocytes % 41.5% Monocytes % 7.2% Eosinophils % 2.5% Basophils % 0.4% Nucleated Red Blood Cells % 0.0/100WBC Neutrophils # (Manual) 210^3/ul Lymphocytes # 2.110^3/ul Monocytes # 0.410^3/ul Eosinophils # 0.110^3/ul Basophils # 0.010^3/ul Nucleated Red Blood Cells # 0.010^3/ul Prothrombin Time 13.4Sec Prothrombin Time Ratio 1.0 INR International Normalized Ratio 1.02 Activated Partial Thromboplast Time 35.4Sec Urine Color STRAW Urine Clarity CLEAR Urine pH 6.0 Urine Specific [place] 1.005 Urine Ketones NEGATIVEmg/dL Urine Nitrite NEGATIVEmg/dL Urine Bilirubin NEGATIVEmg/dL Urine Urobilinogen NEGATIVEmg/dL Urine Leukocyte Esterase NEGATIVELeu/ul Urine Hemoglobin NEGATIVEmg/dL Urine Glucose NEGATIVEmg/dL Urine Total Protein NEGATIVEmg/dl Sodium Level 144mmol/L Potassium Level 3.8mmol/L Chloride Level 100mmol/L Carbon Dioxide Level 29mmol/L Anion Gap 19 Blood Urea Nitrogen 14mg/dl Creatinine 0.76mg/dl Glucose Level 102mg/dl Calcium Level 9.4mg/dl Total Bilirubin 0.5mg/dl Direct Bilirubin 0.00mg/dl Indirect Bilirubin 0.5mg/dl Aspartate Amino Transf (AST/SGOT) 26IU/L Alanine Aminotransferase (ALT/SGPT) 32IU/L Alkaline Phosphatase 81IU/L Troponin I < 0.012ng/ml Total Protein 7.7g/dl Albumin 4.5g/dl Globulin 3.20g/dl Albumin/Globulin Ratio 1.40 Lipase 83U/L Current Medications Medications (Trade) Dose Ordered Sig/Sam Route PRN Reason Start Time Stop Time Status Last Admin Dose Admin Sodium Chloride (NS) 1,000 ml @ 1,000 mls/hr Q1H STAT IV 06/03/17 11:36 06/03/17 12:35 DC 06/03/17 12:03 Morphine Sulfate (morphine) 2 mg ONCE STAT IV 06/03/17 11:36 06/03/17 11:38 DC 06/03/17 12:03 Ondansetron HCl (Zofran Inj) 4 mg ONCE STAT IV 06/03/17 11:36 06/03/17 11:38 DC 06/03/17 12:03 Procedures/MDM EKG, MONITORS, & DIAGNOSTIC IMAGING: EKG: I reviewed and interpreted a 12-lead EKG. Rhythm: Normal sinus rhythm Ectopy: None Intervals: No abnormalities ST segments: No elevations or depressions T waves: No contiguous inversions Chest x-ray: I reviewed and interpreted a 1 view of the chest Mediastinum: No enlargement Cardiac silhouette: No cardiomegaly Airspace: Clear lung silva bilaterally without evidence of pneumothorax Bones: No evidence of fracture CT abdomen and pelvis. IMPRESSION: 1. No acute intra-abdominal process is noted. 2. Diverticulosis of the colon involving the hepatic flexure and sigmoid colon. No evidence of diverticulitis or appendicitis. 3. Stable benign hepatic cysts. 4. Small hiatal hernia. 5. 4.2 mm, 2 mm and 1.4 mm pleural based pulmonary nodules in the right lower lobe which are most likely the result of granulomas. These are unchanged as visualized. RPTAT:AAJJ LAB INTERPRETATION: No leukocytosis, no hepatobiliary obstruction MEDICAL DECISION MAKING: The patient is a very difficult historian making his presentation very difficult to diagnose. It appears the patient is having left-sided abdominal pain. He also has myalgias. I do not believe this is consistent with a dissection or acute myocardial infarction. The patient does have abdominal surgical history of diverticulosis therefore warranting CT imaging of the abdomen and pelvis. The patient does have a mild headache but no signs or symptoms concerning for intracranial process. The patient's headache is unlikely related to serious etiology. The patient does not exhibit any clinical signs or symptoms, and has no risk factors to suggest headache etiology such as subarachnoid hemorrhage, acute vertebral or carotid dissection, intracranial mass, epidural, subdural hematoma, dural venous sinus thrombosis, giant cell arteritis, or pseudotumor cerebri. I believe the patient will benefit from laboratory testing, gentle fluids and pain medication, CT imaging of the abdomen and pelvis and reassessment. I am not convinced patient requires hospitalization as he is otherwise well- appearing with normal vital signs. Disposition pending laboratory testing and CT imaging. ER COURSE: The patient was given IV fluids and pain control medication. His diagnostic imaging and laboratory testing is unrevealing. At this time I do not have a clear etiology as to the patient's symptoms. Consider possible viral etiology versus nonspecific myalgia. The patient continues to be well-appearing with a repeat abdominal exam and is benign. The patient does not have evidence of an acute medical condition warranting hospitalization. He was advised to follow- up with his primary care physician. I kept the patient and/or family informed of laboratory and diagnostic imaging results throughout the emergency room course. DISPOSITION PLAN: We discussed follow up with the patient's primary care doctor within 24 to 48 hours as needed. We also discussed return to the emergency room for worsening symptoms or worsening condition. Outpatient referral: [None required] Discharge Medications: Tylenol Departure Diagnosis: Primary Impression: Myalgia Additional Impression: Abdominal pain Abdominal location: unspecified location Qualified Code: R10.9 - Abdominal pain, unspecified location Condition: MARGRET Marie MD Jun 03, 2017 11:52
--- NOTE | 2017-06-03 11:58 | RADRPT ---
PROCEDURE: XR Chest. CLINICAL INDICATION: Abdominal Pain TECHNIQUE: A single AP portable frontal view of the chest was obtained. COMPARISON: Chest x-ray 04/21/2017 FINDINGS: The cardiomediastinal silhouette is within normal limits. There is mild atherosclerotic calcification of the aorta. There is mild increased left basilar atelectasis. Additional linear opacities at the left lung base are stable and likely represent a prominent epicardial fat pad and / or left basilar scarring. No pneumothorax, pleural effusion, or consolidation is identified. There is no evidence of pulmonary vascular congestion. There are degenerative changes of the spine. IMPRESSION: 1. No evidence of an acute cardiopulmonary process. 2. Increased left basilar linear atelectasis with stable left basilar scarring and / or prominent e picardial fat pad. 3. Thoracic aortic atherosclerotic disease. RPTAT: QQ Physician Manuel Date Time Electronically viewed and signed by Physician Manuel on 06/03/2017 11:58 /
[2017-06-03 12:19] LABS: BASOPHILS % 0.4 % (0.0-2.0); EOSINOPHILS # 0.1 10^3/ul (0.0-0.5); EOSINOPHILS % 2.5 % (0.0-7.0); HEMATOCRIT 41.3 % (42.0-52.0); HEMOGLOBIN 14.5 g/dl (14.0-18.0); LYMPHOCYTES # 2.1 10^3/ul (0.8-2.9); LYMPHOCYTES % 41.5 % (15.0-51.0); MEAN CORPUSCULAR HEMOGLOBIN 30.5 pg (29.0-33.0); MEAN CORPUSCULAR HGB CONC 35.1 g/dl (32.0-37.0); MEAN CORPUSCULAR VOLUME 86.9 fl (82.0-101.0); MEAN PLATELET VOLUME 10.7 fl (7.4-10.4); MONOCYTE # 0.4 10^3/ul (0.3-0.9); MONOCYTES % 7.2 % (0.0-11.0); NEUTROPHILS % 48.2 % (39.0-77.0); PLATELET COUNT 217 10^3/UL (140-415); RED BLOOD COUNT 4.75 10^6/ul (4.70-6.10); RED CELL DISTRIBUTION WIDTH 12.6 % (11.5-14.5); WHITE BLOOD COUNT 5.1 10^3/ul (4.8-10.8)
[2017-06-03 12:20] LABS: ALANINE AMINOTRANSFERASE 32 IU/L (13-69); ALBUMIN 4.5 g/dl (3.3-4.9); ALKALINE PHOSPHATASE 81 IU/L (42-121); ANION GAP 19 (8-16); ASPARTATE AMINO TRANSFERASE 26 IU/L (15-46); BILIRUBIN,INDIRECT 0.5 mg/dl (0-1.1); BILIRUBIN,TOTAL 0.5 mg/dl (0.2-1.3); BLOOD UREA NITROGEN 14 mg/dl (7-20); CALCIUM 9.4 mg/dl (8.4-10.2); CARBON DIOXIDE 29 mmol/L (21-31); CHLORIDE 100 mmol/L (97-110); CREATININE 0.76 mg/dl (0.61-1.24); GLUCOSE 102 mg/dl (70-220); POTASSIUM 3.8 mmol/L (3.5-5.1); SODIUM 144 mmol/L (135-144); TOTAL PROTEIN 7.7 g/dl (6.1-8.1)
[2017-06-03 12:25] LABS: INR 1.02; PROTIME 13.4 Sec (12.2-14.2)
[2017-06-03 12:26] LABS: ADD UMIC NO; PARTIAL THROMBOPLASTIN TIME 35.4 Sec (25.0-35.0); UR ASCORBIC ACID NEGATIVE (NEGATIVE); UR BILIRUBIN (Dip) NEGATIVE (NEGATIVE); UR BLOOD (Dip) NEGATIVE (NEGATIVE); UR CLARITY CLEAR (CLEAR); UR COLOR STRAW (YELLOW); UR GLUCOSE (Dip) NEGATIVE (NEGATIVE); UR KETONES (Dip) NEGATIVE (NEGATIVE); UR LEUKOCYTE ESTERASE (Dip) NEGATIVE Leu/ul (NEGATIVE); UR NITRITE (Dip) NEGATIVE (NEGATIVE); UR SPECIFIC GRAVITY (Dip) 1.005 (1.003-1.030); UR TOTAL PROTEIN (Dip) NEGATIVE (NEGATIVE); UR UROBILINOGEN (Dip) NEGATIVE (NEGATIVE)
[2017-06-03 12:38] LABS: TROPONIN-I < 0.012 ng/ml (0.00-0.12)
--- NOTE | 2017-06-03 14:13 | RADRPT ---
PROCEDURE: CT scan of the abdomen and pelvis without IV contrast. CLINICAL INDICATION: 76-year-old male with abdominal pain. TECHNIQUE: Thin section axial, coronal and sagittal images were performed through the abdomen and pelvis without contrast. Radiation Dose: CTDI: 11.63 and DLP: 576.29 One or more of the following dose reduction techniques were used: - Automated exposure control. - Adjustment of the mA and/or kV according to patient size. Use of iterative reconstruction technique. COMPARISON: Chest x-ray 11/17/2016 06:18 a.m. FINDINGS: Soft tissues: Normal. Lungs and pleural spaces: There are 2 small pulmonary nodules abutting the pleural surface in the ri ght lower lobe measuring 2 mm and 1.4 mm in size respectively. A larger 4.2 mm pleural-based pulmona ry nodule is identified in the right lower lobe which is unchanged. There is atelectasis in the yanni phery of the right left lower lobes. No pleural effusion is identified. Heart: Heart is normal in size. No pericardial effusion is identified. The liver, common bile duct and gallbladder: A 2.1 by 1.3 cm subcapsular cyst is noted in the left l obe of the liver adjacent to the gallbladder. A second benign cyst is noted in the medial dome of th e right lobe of the liver measuring 1.9 cm. No solid hepatic mass or intrahepatic biliary ductal dil atation is identified. Gastrointestinal: There is a small hiatal hernia. The stomach is otherwise normal. The small bowel loops have a normal caliber and are unremarkable.. There are diverticula in the descending and sig moid colon. The colon is otherwise normal. There is no evidence of acute diverticulitis or appendic itis. There are diverticula in the hepatic flexure. Pancreas: Normal. Kidneys, bladder and adrenal glands : Normal. Spleen: Normal. There is an accessory splenule. Lymph nodes: Normal. Reproductive system and pelvis : Normal. Bony elements: There are degenerative osteophytes in the thoracic and lumbar spine. There is mild g rade 1 anterolisthesis of L4 and L5. There is no evidence of spondylolysis. Vasculature: There are vascular calcifications in the abdominal aorta and lower thoracic aorta. IMPRESSION: 1. No acute intra-abdominal process is noted. 2. Diverticulosis of the colon involving the hepatic flexure and sigmoid colon. No evidence of div erticulitis or appendicitis. 3. Stable benign hepatic cysts. 4. Small hiatal hernia. 5. 4.2 mm, 2 mm and 1.4 mm pleural based pulmonary nodules in the right lower lobe which are most l ikely the result of granulomas. These are unchanged as visualized. RPTAT:AAJJ Aftab Batres Physician Date Time Electronically viewed and signed by Aftab Batres, Physician on 06/03/2017 14:13 NEGRITA/
[2017-06-03] MEDS ORDERED: ACET500C5 PO (14:33)
[2017-06-03 15:05] VITALS: BP 131/67; PULSE 56; RESP 16; TEMP 98.2
== END 2017-06-03 15:06 | disposition home or self-care (01) ==
LOC: FTE 10:22 → E/R 15:06
DX: M79.1 Myalgia (principal); R10.84 Generalized abdominal pain; I10 Essential (primary) hypertension
CPT/HCPCS: 36415; 71010; 74176; 80053; 81003; 83690; 84484; 85025; 85610; 85730; 93005; 96374; 96375; 99285; J2270; J2405; J7030

== ENCOUNTER 2018-02-07 00:01 | Emergency (ER) | END 2018-02-07 03:41 | disposition home or self-care (01) ==

== ENCOUNTER 2019-04-18 06:17 | Emergency (ER) | payer OTHER ==
[~2019-04-18] VITALS: Ht 165.1 cm; Wt 72.7 kg
[~2019-04-18 06:17] MED LIST changes: -ACET-141 PO; +ACET500C5 PO; +LOSA50TA14 PO; -LOSA50TA6 PO; -MULT1TAB10 PO; -ONDA4TAB14 PO; -PANT40TA3 PO
[2019-04-18 06:25] VITALS: BP 158/68; PULSE 74; RESP 18; Ht 165.1 cm; Wt 72.7 kg
[2019-04-18] MEDS ORDERED: PSEU-79 PO (06:38)
[2019-04-18] MEDS ORDERED: BENZ-6 PO (06:38)
[2019-04-18] MEDS ORDERED: PROM6.2515 PO (06:38)
[2019-04-18] MEDS ORDERED: NAPR-985 PO (06:38)
--- NOTE | 2019-04-18 07:41 | ERD ---
ER Documentation Chief Complaint Chief Complaint sore throat x 7 days HPI 78-year-old male presenting with a sore throat runny nose and productive cough for the last week. Patient has not taken medications for symptoms and denies fevers. Denies medical problems. NKDA. Surgical history denies. Social history ROS All systems reviewed and are negative except as per history of present illness. Medications Home Meds Active Scripts Promethazine Hcl* (Promethazine Hcl* Syrup) 6.25 Mg/5 Ml Syrup, 6.25 MG PO Q6H PRN for COUGH, #100 ML Prov:DELORIS AYON PA-C 04/18/19 Benzonatate* (Tessalon Perle*) 100 Mg Capsule, 100 MG PO Q8H PRN for COUGH, #30 CAP Prov:DELORIS AYON PA-C 04/18/19 Pseudoephedrine Hcl* (Suphedrin*) 30 Mg Tablet, 30 MG PO Q6 PRN for CONGESTION, #30 TAB Prov:DELORIS AYON PA-C 04/18/19 Naproxen* (Naprosyn*) 500 Mg Tablet, 500 MG PO BID PRN for PAIN AND/OR INFLAMMATION, #30 TAB Prov:DELORIS AYON PA-C 04/18/19 Tramadol HCl (Tramadol HCl) 50 Mg Tablet, 50 MG PO Q6H PRN for HEADACHE, #10 TAB Prov:ELSA BRIGHT MD 02/07/18 Acetaminophen* (Tylophen*) 500 Mg Capsule, 1 CAP PO Q6H PRN for PAIN AND OR ELEVATED TEMP, #20 CAP Prov:MARGRET STORY MD 06/03/17 Reported Medications Carvedilol* (Carvedilol*) 6.25 Mg Tablet, 6.25 MG PO BID, #60 TAB 01/08/17 Atorvastatin* (Atorvastatin*) 40 Mg Tablet, 40 MG PO QHS, #30 TAB 01/08/17 Losartan Potassium* (Losartan Potassium*) 50 Mg Tablet, 50 MG PO DAILY, TAB 09/26/16 Tamsulosin Hcl* (Flomax*) 0.4 Mg Cap.er.24h, 0.4 MG PO HS, CAP 03/24/15 Allergies Allergies: Coded Allergies: No Known Drug Allergies (Unverified Allergy, Unknown, 8/20/17) PMhx/Soc History of Surgery: Yes (APPENDECTOMY, EGD APRIL 2017) Anesthesia Reaction: No Hx Neurological Disorder: No Hx Respiratory Disorders: No Hx Cardiac Disorders: Yes (HTN) Hx Psychiatric Problems: No Hx Miscellaneous Medical Probl: Yes (PROSTATE CANCER, GASTRITIS) Hx Alcohol Use: No Hx Substance Use: No Hx Tobacco Use: No Smoking Status: Unknown if ever smoked FmHx Family History: No diabetes, No coronary disease, No other Physical Exam Vitals Vital Signs Date Temp Pulse Resp B/P (MAP) Pulse Ox O2 O2 Flow FiO2 Time Delivery Rate 04/18/19 97.1 74 18 158/68 96 06:25 (98) Physical Exam GENERAL: The patient is well-appearing, well-nourished, in no acute distress HEENT: Atraumatic. Conjunctivae are pink. Pupils equal, round, and reactive to light. There is no scleral icterus. Tympanic membranes clear bilaterally. Oropharynx clear. NECK: C-spine is soft and supple. There is no meningismus. There is no cervical lymphadenopathy. CHEST: Clear to auscultation bilaterally. There are no rales, wheezes or rhonchi. HEART: Regular rate and rhythm. No murmurs, clicks, rubs or gallops. Procedures/MDM MDM: 78-year-old male presenting with URI symptoms. Patient's breath sounds are within normal limits. I have low suspicion for pneumonia. Oxygen saturation 96% on room air with no abnormal findings noted on exam. I have low suspicion for bacterial HEENT infection. I have low suspicion for meningitis or sepsis. Patient is discharged with supportive medications and does not require antibiotics at this time. Patient is told symptoms change or worsen to return immediately to the ER. All questions answered at discharge Departure Diagnosis: Primary Impression: Viral URI Condition: Stable Patient Instructions: Uri, Viral, No Abx (Adult) Referrals: COMMUNITY CLINICS YOU HAVE RECEIVED A MEDICAL SCREENING EXAM AND THE RESULTS INDICATE THAT YOU DO NOT HAVE A CONDITION THAT REQUIRES URGENT TREATMENT IN THE EMERGENCY DEPARTMENT. FURTHER EVALUATION AND TREATMENT OF YOUR CONDITION CAN WAIT UNTIL YOU ARE SEEN IN YOUR DOCTORS OFFICE WITHIN THE NEXT 1-2 DAYS. IT IS YOUR RESPONSIBILITY TO MAKE AN APPOINTMENT FOR FOLOW-UP CARE. IF YOU HAVE A PRIMARY DOCTOR --you should call your primary doctor and schedule an appointment IF YOU DO NOT HAVE A PRIMARY DOCTOR YOU CAN CALL OUR PHYSICIAN REFERRAL HOTLINE AT IF YOU CAN NOT AFFORD TO SEE A PHYSICIAN YOU CAN CHOSE FROM THE FOLLOWING FORMERLY [facility] [address] [facility] [address] [facility] [facility] [address] [facility] [address] [facility] [facility] [address] [facility]. [facility] [address] Additional Instructions: FOLLOW UP WITH YOUR PRIMARY CARE PHYSICIAN TOMORROW.Return to this facility if you are not improving as expected. DELORIS AYON PA-C Apr 18, 2019 07:41
== END 2019-04-18 07:12 | disposition home or self-care (01) ==
LOC: FTE 06:17
DX: J06.9 Acute upper respiratory infection, unspecified (principal); I10 Essential (primary) hypertension
CPT/HCPCS: 99283

== ENCOUNTER 2019-06-13 20:52 | Observation (INO) | payer OTHER ==
[~2019-06-13] VITALS: Ht 162.6 cm; Wt 73.6 kg
[~2019-06-13 20:52] MED LIST changes: +ATOR20TA38 PO; +BENZ-6 PO; +NAPR-985 PO; +PROM6.2515 PO; +PSEU-79 PO; +RANI150T5 PO
[2019-06-13] MEDS ORDERED: NITROGLYCERIN 2% 1 GM OINT PKT TD STA (21:09)
[2019-06-13] MEDS ORDERED: NITROGLYCERIN (SL) 0.4 MG TAB SL PRN ×2 (21:30→22:30)
[2019-06-13] MEDS ORDERED: hydrALAzine 20 MG INJ IV PRN (22:30)
[2019-06-13] MEDS ORDERED: morphine 2 MG INJ IV PRN (22:30)
[2019-06-13] MEDS ORDERED: BISACODYL (EC) 5 MG TAB PO PRN (22:30)
[2019-06-13] MEDS ORDERED: NACL 0.9% 3 ML SYG IV SCH (22:30)
[2019-06-13] MEDS ORDERED: DOCUSATE SODIUM 100 MG CAP PO PRN (22:30)
[2019-06-13] MEDS ORDERED: ACETAMINOPHEN 325 MG TAB PO PRN ×2 (22:30)
[2019-06-13] MEDS ORDERED: ONDANSETRON 4 MG INJ IV PRN ×2 (22:30)
[2019-06-14 01:30] VITALS: Ht 162.6 cm; Wt 73.6 kg
[2019-06-14 01:36] VITALS: BP 153/78; RESP 18
[2019-06-14 04:00] VITALS: BP 141/80; PULSE 65; RESP 20
[2019-06-14] MEDS ORDERED: KETOROLAC 15 MG INJ IV ONE (06:32)
[2019-06-14] MEDS ORDERED: LIDOCAINE/MYLANTA 40 ML BTL PO ONE (07:00)
[2019-06-14 07:32] VITALS: BP 131/71; PULSE 62; RESP 18
[2019-06-14] MEDS ORDERED: LOSARTAN 50 MG TAB PO SCH (09:00)
[2019-06-14 10:53] VITALS: BP 119/64; PULSE 64; RESP 20
[2019-06-14] MEDS ORDERED: RANITIDINE 150 MG TAB PO SCH (21:00)
[2019-06-14] MEDS ORDERED: TAMSULOSIN (SR) 0.4 MG CAP PO SCH (21:00)
[2019-06-14] MEDS ORDERED: ATORVASTATIN 20 MG TAB PO SCH (21:00)
== END 2019-06-14 13:48 | disposition home or self-care (01) ==
LOC: E/R 20:52 → TEL 22:55
PROVIDERS: ADMIT Family Medicine; ATTEND Family Medicine
DX: R07.89 Other chest pain (principal); I10 Essential (primary) hypertension; E78.00 Pure hypercholesterolemia, unspecified; E78.5 Hyperlipidemia, unspecified; C61 Malignant neoplasm of prostate; K29.70 Gastritis, unspecified, without bleeding; M19.90 Unspecified osteoarthritis, unspecified site; E86.0 Dehydration
CPT/HCPCS: 36415; 71045; 80048; 80053; 80061; 82550; 82553; 83036; 83735; 84443; 84484; 85025; 93005; 93306; G0378; J1885